=== PATIENT | female | born 1985 | race Caucasian/White ===

== ENCOUNTER 2020-05-16 07:03 | Outpatient (REF) | payer OTHER, SELFPAY | END 2020-05-16 07:04 | disposition home or self-care (01) | LOC: HO.WFDLDS 07:03 | PROVIDERS: PCP Pediatrics; Visit Provider Internal Medicine | DX: Z20.828 Contact with and (suspected) exposure to other viral communicable diseases (principal) | CPT/HCPCS: 87635 ==

== ENCOUNTER 2020-06-30 11:58 | Outpatient (REF) | payer OTHER, SELFPAY ==
[2020-06-30 12:54] LABS: COVID-19 Test Positive (Negative)
== END 2020-06-30 11:59 | disposition home or self-care (01) ==
LOC: HO.LAB 11:58
PROVIDERS: Visit Provider Internal Medicine
DX: Z20.828 Contact with and (suspected) exposure to other viral communicable diseases (principal)
CPT/HCPCS: 87635; C9803

== ENCOUNTER 2020-08-04 09:32 | Outpatient (REF) | payer OTHER, SELFPAY ==
[2020-08-04 10:35] LABS: MANUAL DIFF FLAG NO
[2020-08-04 10:55] LABS: Basophils Absolute Auto 0.1 X10*3/uL (0.0-0.2); Basophils Percent Auto 0.6 % (0-2); Eosinophils Absolute Auto 0.1 X10*3/uL (0.0-0.4); Eosinophils Percent Auto 0.8 % (0-4); Hemoglobin 13.8 g/dl (12.0-16.0); Imm Gran Abs Auto 0.06 X10*3/uL (0.00-0.03); Imm Gran Pct Auto 0.6 % (0.0-0.4); Lymphocytes Absolute Auto 2.5 X10*3/uL (1.2-4.9); Lymphocytes Percent Auto 26.1 % (20-40); Mean Corpuscular HGB Conc 32.1 g/dl (31.0-35.0); Mean Corpuscular Hemoglobin 29.9 pg (27.0-33.0); Mean Corpuscular Volume 93.3 fL (80-98); Mean Platelet Volume 10.6 fL (9.4-12.3); Monocytes Absolute Auto 0.6 X10*3/uL (0.1-1.2); Monocytes Percent Auto 6.2 % (2-11); Neutrophils Absolute Auto 6.3 X10*3/uL (2.0-8.3); Neutrophils Percent Auto 65.7 % (45-73); Platelet Count 294 X10*3/uL (160-400); Red Blood Count 4.61 X10*6/uL (4.20-5.50); Red Cell Distribution Width 13.7 % (11.0-16.0); White Blood Count 9.5 X10*3/uL (4.8-10.8)
[2020-08-04 11:19] LABS: Glucose Urine UA NEG (NEG); Leukocyte Esterase Urine NEG (NEG); Nitrite Urine NEG (NEG); Specific Gravity - Urine 1.015 (1.005-1.025); Urine Blood TRACE (NEG); Urine Ketones NEG (NEG); Urine Protein NEG (NEG-TRACE)
[2020-08-04 11:22] LABS: Alanine Aminotransferase 21 U/L (0-31); Albumin Level 4.5 g/dL (3.5-5.0); Alkaline Phosphatase 48 U/L (39-117); Anion Gap 14 (12-20); Aspartate Amino Transferase 19 U/L (5-31); Bilirubin Total 0.4 mg/dL (0.0-1.0); Blood Urea Nitrogen 10 mg/dL (9-16); Calcium 9.3 mg/dL (8.4-10.2); Carbon Dioxide 26 mmol/L (22-29); Chloride 104 mmol/L (96-108); Estimated Glomerular Filt Rate > 60; Glucose Random 84 mg/dL (60-115); Potassium 4.9 mmol/l (3.3-5.1); Sodium 139 mmol/L (135-145)
[2020-08-04 11:26] LABS: Appearance Urine CLEAR; Color Urine YELLOW
[2020-08-04 11:48] LABS: Bacteria Urine 1+ /LPF; Renal Epithelial Cells Urine TRACE /LPF; Squamous Epithelial Cell Urine 1+ /LPF
--- NOTE | 2020-08-04 14:03 | CT_ITS ---
EXAMINATION: CT ABDOMEN AND PELVIS WITH CONTRAST CLINICAL INFORMATION: Left lower abdominal pain COMPARISON: None TECHNIQUE: Multidetector volumetric images were obtained from the superior aspect of the liver through the pubic symphysis following administration 85 mL of Omnipaque 350 intravenous contrast. Sagittal and coronal reformatted images were obtained on the technologist's workstation. Oral contrast: Yes This CT examination was performed using dose optimization techniques as appropriate, variously including the following: *Automated exposure control *Adjustment of mA and/or kV according to patient size (this includes techniques or standardized protocols for targeted exams where dose is matched to indication/reason for exam; i.e. extremities or head) *Use of iterative reconstruction technique DLP: 528 mGy-cm FINDINGS: LUNG BASES: There is dependent atelectasis seen at the lung bases. The lung bases are otherwise clear. LIVER, GALLBLADDER, AND BILIARY TREE: The liver is normal in size, shape, and attenuation. No focal hepatic lesion or biliary ductal dilatation is present. The gallbladder is unremarkable with no evidence of radiopaque gallstones, gallbladder wall thickening, or obvious pericholecystic inflammatory changes. PANCREAS: Unremarkable. SPLEEN: Unremarkable. ADRENAL GLANDS: Unremarkable. KIDNEYS AND URETERS: The kidneys are normal in size, shape, and attenuation. No hydronephrosis, hydroureter, or calculi seen. No perinephric stranding. BLADDER: Unremarkable. GASTROINTESTINAL TRACT: There is stool throughout the colon questionable for constipation. The small and large bowel are otherwise unremarkable. The appendix is unremarkable. ABDOMINAL WALL: No significant hernia is appreciated. LYMPH NODES: Normal. VASCULAR: Unremarkable. PELVIC VISCERA: There is an IUD in the uterus in satisfactory position. The uterus and adnexa are otherwise unremarkable. OSSEOUS STRUCTURES: There is degenerative disc disease at L5-S1. CT/CT abdomen pelvis w con IMPRESSION: Stool throughout the colon questionable for constipation. IUD in the uterus in satisfactory position. Degenerative disc disease at L5-S1.
[2020-08-04] MEDS: iohexoL 350 MG/ML 100 ML INFUS..BTL IV (16:13)
== END 2020-08-04 09:33 | disposition home or self-care (01) ==
LOC: HO.WFDLDS 09:32
PROVIDERS: Visit Provider Family Medicine
DX: R10.32 Left lower quadrant pain (principal)
CPT/HCPCS: 36415; 74177; 80053; 81001; 81003; 85025; Q9967

== ENCOUNTER 2020-09-15 08:19 | Outpatient (REF) | payer OTHER, SELFPAY ==
[2020-09-15 08:37] LABS: COVID-19 Test Negative (Negative)
== END 2020-09-15 08:20 | disposition home or self-care (01) ==
LOC: HO.EMPCOV 08:19
PROVIDERS: Visit Provider Internal Medicine
DX: Z20.822 Contact with and (suspected) exposure to COVID-19 (principal)
CPT/HCPCS: 36415; 87635; C9803

== ENCOUNTER 2020-12-08 08:35 | Outpatient (REF) | payer OTHER, SELFPAY | END 2020-12-08 08:36 | disposition home or self-care (01) | LOC: HO.WFDLNP 08:35 | PROVIDERS: Visit Provider Family Medicine | DX: N39.0 Urinary tract infection, site not specified (principal) | CPT/HCPCS: 87086; 87088; 87186 ==

== ENCOUNTER 2021-07-23 09:31 | Outpatient (REF) | payer OTHER, SELFPAY | END 2021-07-23 09:32 | disposition home or self-care (01) | LOC: HO.WFDLDS 09:31 | PROVIDERS: PCP Pediatrics; Visit Provider Internal Medicine | DX: Z20.822 Contact with and (suspected) exposure to COVID-19 (principal) | CPT/HCPCS: C9803; U0003; U0005 ==

== ENCOUNTER → 2021-08-07 15:53 | Outpatient (BNVA) | payer OTHER, SELFPAY | PROVIDERS: PCP Pediatrics; Visit Provider Psychiatry & Neurology Neurology | DX: G47.411 Narcolepsy with cataplexy (principal); G47.33 Obstructive sleep apnea (adult) (pediatric) | CPT/HCPCS: 99212 ==

== ENCOUNTER → 2021-09-09 15:29 | Outpatient (BNVA) | payer OTHER, SELFPAY | PROVIDERS: PCP Pediatrics; Visit Provider Psychiatry & Neurology Neurology ==

== ENCOUNTER → 2021-09-28 13:30 | Outpatient (BNVA) | payer OTHER, SELFPAY | PROVIDERS: PCP Pediatrics; Visit Provider Psychiatry & Neurology Neurology ==

== ENCOUNTER 2022-03-10 07:16 | Outpatient (REF) | payer OTHER, SELFPAY ==
[2022-03-10 11:33] LABS: MANUAL DIFF FLAG NO
[2022-03-10 11:43] LABS: Basophils Absolute Auto 0.1 X10*3/uL (0.0-0.2); Basophils Percent Auto 0.7 % (0-2); Eosinophils Absolute Auto 0.1 X10*3/uL (0.0-0.4); Eosinophils Percent Auto 1.3 % (0-4); Hematocrit 41.9 % (37.0-47.0); Hemoglobin 13.7 g/dl (12.0-16.0); Imm Gran Abs Auto 0.08 X10*3/uL (0.00-0.03); Imm Gran Pct Auto 0.9 % (0.0-0.4); Lymphocytes Absolute Auto 2.1 X10*3/uL (1.2-4.9); Lymphocytes Percent Auto 23.1 % (20-40); Mean Corpuscular HGB Conc 32.7 g/dl (31.0-35.0); Mean Corpuscular Hemoglobin 31.1 pg (27.0-33.0); Mean Platelet Volume 10.9 fL (9.4-12.3); Monocytes Absolute Auto 0.7 X10*3/uL (0.1-1.2); Monocytes Percent Auto 7.9 % (2-11); Neutrophils Absolute Auto 5.9 x10*3/uL (2.0-8.3); Neutrophils Percent Auto 66.1 % (45-73); Platelet Count 280 X10*3/uL (160-400); Red Blood Count 4.41 X10*6/uL (4.20-5.50); Red Cell Distribution Width 13.6 % (11.0-16.0)
[2022-03-10 11:59] LABS: Estimated Average Glucose 97 mg/dL
[2022-03-10 12:08] LABS: ~HepC Num1 0.18 S/CO (0.00-0.79); ~Hepatitis C Antibody Nonreactive (Nonreactive)
[2022-03-10 12:13] LABS: Free T4 (Free Thyroxine) 0.92 ng/dL (0.71-1.85); Thyroid Stimulating Hormone 2.35 uIU/mL (0.32-4.0); Vitamin D 25-OH Total 23.5 ng/mL (>30)
[2022-03-10 12:18] LABS: Alanine Aminotransferase 25 U/L (0-31); Albumin Level 4.2 g/dL (3.5-5.0); Alkaline Phosphatase 45 U/L (39-117); Anion Gap 15 (12-20); Aspartate Amino Transferase 21 U/L (5-31); Bilirubin Total 0.3 mg/dL (0.0-1.0); Blood Urea Nitrogen 9 mg/dL (9-16); Calcium 8.8 mg/dL (8.4-10.2); Carbon Dioxide 24 mmol/L (22-29); Chloride 107 mmol/L (96-108); Cholesterol 234 mg/dL; Estimated Glomerular Filt Rate > 60; Glucose Fasting 84 mg/dL (60-99); HDL Cholesterol 32 mg/dL; LDL Cholesterol Calculated 173 mg/dl; Potassium 4.5 mmol/L (3.3-5.1); Sodium 141 mmol/L (135-145); Total Protein 6.7 g/dL (6.5-8.0); Triglycerides 146 mg/dL
[2022-03-10 13:05] LABS: Vitamin B12 212 pg/mL (200-900)
== END 2022-03-10 07:17 | disposition home or self-care (01) ==
LOC: HO.WFDLDS 07:16
PROVIDERS: PCP Internal Medicine; Visit Provider Internal Medicine
DX: Z00.00 Encounter for general adult medical examination without abnormal findings (principal); G47.411 Narcolepsy with cataplexy; G47.33 Obstructive sleep apnea (adult) (pediatric); Z13.31 Encounter for screening for depression; Z99.89 Dependence on other enabling machines and devices
CPT/HCPCS: 36415; 80053; 80061; 82306; 82607; 83036; 84439; 84443; 85025; 86803

== ENCOUNTER → 2022-05-31 15:39 | Outpatient (BNVA) | payer OTHER, SELFPAY | PROVIDERS: PCP Internal Medicine; Visit Provider Psychiatry & Neurology Neurology | DX: G47.411 Narcolepsy with cataplexy (principal); G47.33 Obstructive sleep apnea (adult) (pediatric) | CPT/HCPCS: 99212 ==

== ENCOUNTER 2022-07-28 11:04 | Outpatient (REF) | payer OTHER, SELFPAY | END 2022-07-28 11:05 | disposition home or self-care (01) | LOC: HO.LAB 11:04 | PROVIDERS: Visit Provider Family Medicine | DX: N39.0 Urinary tract infection, site not specified (principal) | CPT/HCPCS: 87086; 87088; 87186 ==

== ENCOUNTER → 2022-09-02 16:00 | Outpatient (BNVA) | payer OTHER, SELFPAY | PROVIDERS: PCP Internal Medicine; Visit Provider Psychiatry & Neurology Neurology | DX: Z13.89 Encounter for screening for other disorder (principal) ==

== ENCOUNTER 2022-09-16 12:30 | Outpatient (REF) | payer OTHER, SELFPAY ==
[2022-09-16 13:12] LABS: Influenza A PCR NEGATIVE (Negative); Influenza B PCR NEGATIVE (Negative); Resp Syncy Virus RNA Qual PCR NEGATIVE (Negative); SARS COV2 PCR INHOUSE NEGATIVE (Negative)
== END 2022-09-16 12:31 | disposition home or self-care (01) ==
LOC: HO.LNP 12:30
PROVIDERS: Visit Provider Hospitalist
DX: Z20.822 Contact with and (suspected) exposure to COVID-19 (principal); B34.9 Viral infection, unspecified
CPT/HCPCS: 0241U

== ENCOUNTER 2023-01-11 17:12 | Outpatient (REF) | payer OTHER, SELFPAY ==
[2023-01-12 12:00] LABS: Appearance Urine Cloudy; Color Urine Yellow; Glucose Urine UA Negative (Negative); Leukocyte Esterase Urine Large (3+) (Negative); Nitrite Urine Negative (Negative); PH 6.5 (5.0-9.0); UMIC TRIGGER UACC YES; Urine Blood Small (1+) (Negative); Urine Ketones Negative (Negative); Urine Protein Negative (Neg-Trace)
[2023-01-12 12:06] LABS: Bacteria Urine 4+ (None Seen); Hyaline Casts Urine 0-2 /LPF (0-2); UACC Culture Trigger YES; WBC Urine >50 /HPF (0-5)
== END 2023-01-11 17:13 | disposition home or self-care (01) ==
LOC: HO.LAB 17:12
PROVIDERS: Visit Provider Family Medicine
DX: R82.90 Unspecified abnormal findings in urine (principal)
CPT/HCPCS: 81001; 81003; 87088; 87186

== ENCOUNTER 2023-05-09 08:47 | Outpatient (AMB) | payer OTHER, SELFPAY ==
--- NOTE | 2023-05-09 08:50 | AM.OFFWIN_ITS ---
Intake Vital Signs 05/09/23 08:57 Height 5 ft 4 in BP 108/58 L Blood Pressure Location Lt brachial Position Sitting Respiration 13 Pulse 89 Pulse Source Pulse Oximeter Pulse Oximetry (%) 98 Oxygen Delivery Method Room Air Intake Visit Reasons: abscess Intake Note: Patient has had an abscess like area on the inside of the upper right side of the mouth x7 days. Patient reports she noticed a bubble forming x1 day. Patient reports she is trying to set up an appointment with her dentist and would like an antibiotic in the meantime. 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 Patient has had an abscess like area on the inside of the upper right side of the mouth x7 days. Patient reports she noticed a bubble forming x1 day. Patient reports she is trying to set up an appointment with her dentist and would like an antibiotic in the meantime. [facility] Medical History Depression Narcolepsy and cataplexy Obstructive sleep apnea Recurrent otitis media Surgical History H/O section H/O foot surgery History of back surgery History of salpingectomy Family History Mother Cancer Father No problems noted. Social History Household Members: Other Alcohol intake: never Patient Tobacco Use Status: Current everyday Tobacco user Tobacco use type: Cigarette Cigarette Packs Per Day: 0.5 Cigarettes Per Day: 10 Years Smoked: 15 Review of Systems Const Denies chills, Denies fatigue, Denies fever(s), Denies headache(s) and Denies weakness ENT Denies dizziness and Denies headache(s) Card Denies dyspnea Resp Denies cough, Denies dyspnea, Denies wheezing and Denies other (shortness of breath) Musc Denies numbness and Denies tingling Neuro Denies dizziness, Denies headache(s), Denies numbness, Denies tingling and Denies weakness Psych Denies anxiety and Denies depression Endo Denies fatigue Aller/Immun Denies wheezing Physical Exam Vital Signs: Last Vital Signs Pulse 89 05/09/23 08:57 Resp 13 05/09/23 08:57 BP 108/58 L 05/09/23 08:57 Pulse Ox 98 05/09/23 08:57 Oxygen Delivery Method Room Air 05/09/23 08:57 Const General: well developed; No acute distress Nutritional Appearance: well nourished Orientation/consciousness: patient oriented x3 HEENT Other: R upper inscicor and canine abscess Head: Yes normocephalic and Yes atraumatic Eyes General: appearance normal, both eyes and all related structures Pupils: Equal, round and reactive pupils present EOM: EOMs intact bilaterally Resp Effort & Inspection: normal respiratory effort Neuro General: patient oriented x3 and gait normal Cranial nerves: Yes Equal, round and reactive pupils present Psych Affect: normal affect Assessment & Plan Assessment & Plan (1) Dental abscess: Code(s): K04.7 - Periapical abscess without sinus Plan: Abscess?at?right?upper?canine?gums Also?some?tiny?vesicles?on?inside?of?lip?and?on?gums Possible?abscess?with?a?reactive?outbreak?of?HSV?1?as?patient?notes?she?has?had? cold?sores?in?the?past. Possibly?the?other?way?around Start?cephalexin?for?abscess Start?valacyclovir Medications: New valacyclovir 500 mg PO Q12H 20 tabs 0RF 10 days cephalexin 500 mg PO Q12H 20 caps 0RF 10 days fluconazole 150 mg PO Q3D 2 tabs 0RF 2 doses Coding Level of Care Code Est Pt Level 3 (83536) Diagnoses Dental abscess K04.7
[2023-05-09 08:57] VITALS: BP 108/58; PULSE 89; RESP 13; O2SAT 98
== END 2023-05-09 10:00 | disposition home or self-care (01) ==
PROVIDERS: PCP Internal Medicine; Visit Provider Family Medicine
DX: K04.7 Periapical abscess without sinus (principal)
CPT/HCPCS: 99213

== ENCOUNTER 2023-05-27 13:26 | Outpatient (AMB) | payer OTHER, SELFPAY ==
--- NOTE | 2023-05-27 13:28 | A.OFFVIS_ITS ---
Intake Vital Signs 05/27/23 13:29 Height 5 ft 4 in Weight 215 lb 6 oz BMI 37.0 BP 128/62 Blood Pressure Location Lt brachial Position Sitting Pulse Oximetry (%) 96 Oxygen Delivery Method Room Air Intake Visit Reasons: FMLA paperwork Intake Note: Pt presents today to have FMLA Allergies Sulfa (Sulfonamide Antibiotics) Allergy (Unknown, Verified 05/27/23 13:32) HIVES HPI HPI Comments History of Present Illness Details 37 y/o female patient with narcolepsy an d RADHA presents for FMLA paperwork. Pt has narcolepsy with cataplexy and RADHA. She takes Xyrem 4.5 mg at 9 pm once nightly but having difficulty wake up in the morning. She is still groggy in the morning and having problem driving to work. Pt wakes up 5 am, and takes modafinil 200 mg when she wakes up, It takes an hour to modafinil effects. She can't get out of bed until modafinil kicks in. She is consistently being late for work 7-10 min, and need FMLA paperwork for excuse. She is compliant with CPAP. The CPAP compliance and therapy response (04/27/23-) reviewed. She is on APAP [id number]. The usage days 83% and the average usage hours 6 hrs 50 min. The max pressure was 8.5 and the AHI was 0.1/hr. [facility] Medical History Recurrent otitis media Narcolepsy and cataplexy Obstructive sleep apnea Depression Surgical History History of salpingectomy H/O section H/O foot surgery History of back surgery Family History Mother Cancer Father No problems noted. Social History Household Members: Other Alcohol intake: never Patient Tobacco Use Status: Current everyday Tobacco user Tobacco use type: Cigarette Cigarette Packs Per Day: 0.5 Cigarettes Per Day: 10 Years Smoked: 15 Review of Systems Const All systems reviewed & are unremarkable except as noted in HPI and below Physical Exam Vital Signs: Last Vital Signs BP 128/62 05/27/23 13:29 Pulse Ox 96 05/27/23 13:29 Oxygen Delivery Method Room Air 05/27/23 13:29 BMI result Body Mass Index 37.0 Const General: cooperative Orientation/consciousness: patient oriented x3 Resp Effort & Inspection: normal respiratory effort and able to speak in complete sentences Neuro General: patient oriented x3 Psych Appearance: grossly normal Mental Status: mental status grossly normal Attitude: cooperative Assessment & Plan Assessment & Plan (1) Narcolepsy and cataplexy: Code(s): G47.411 - Narcolepsy with cataplexy (2) Obstructive sleep apnea: Code(s): G47.33 - Obstructive sleep apnea (adult) (pediatric) Plan: Continue CPAP 5-20 and compliance stressed Continue wakix 17.8mg qam, modafanil 200mg qam and qnoon Continue xyrem 4.5g at bed time and 2 nd dose 2.5-4hrs later. FMLA paperwork filled. Coding Level of Care Code Est Pt Level 3 (00643) Diagnoses Narcolepsy and cataplexy G47.411 Obstructive sleep apnea G47.33
[2023-05-27 13:29] VITALS: BP 128/62; O2SAT 96; BMI 37.0
== END 2023-05-27 14:17 | disposition home or self-care (01) ==
PROVIDERS: PCP Internal Medicine; Visit Provider Nurse Practitioner Family
DX: G47.411 Narcolepsy with cataplexy (principal); G47.33 Obstructive sleep apnea (adult) (pediatric)
CPT/HCPCS: 99213

== ENCOUNTER → 2023-05-27 13:26 | Outpatient (BNVA) | payer OTHER, SELFPAY | PROVIDERS: PCP Internal Medicine; Visit Provider Nurse Practitioner Family | DX: G47.411 Narcolepsy with cataplexy (principal); G47.33 Obstructive sleep apnea (adult) (pediatric) | CPT/HCPCS: 99212 ==

== ENCOUNTER 2023-08-08 08:50 | Outpatient (AMB) | payer OTHER, SELFPAY ==
--- NOTE | 2023-08-08 08:56 | MHC.OFFWIV ---
Intake Vital Signs 08/08/23 08:58 Height 5 ft 4 in Weight 218 lb 8 oz BMI 37.5 BP 100/54 L Blood Pressure Location Lt brachial Position Sitting Pulse 99 Pulse Source Pulse Oximeter Temp 98.9 F Temp Source Oral Pulse Oximetry (%) 97 Oxygen Delivery Method Room Air Intake Visit Reasons: sore throat Intake Note: Pt woke up in the middle night with a sore throat and pt is day 10 after having covid Patient Tobacco Use Status: Current everyday Tobacco user Allergies Sulfa (Sulfonamide Antibiotics) Allergy (Unknown, Verified 08/08/23 09:12) HIVES Medication List - Last Reconciled 08/08/23 by Kaila Rendon CNP atorvastatin 20 mg PO DAILY cholecalciferol (vitamin D3) 125 mcg PO DAILY cyanocobalamin (vitamin B-12) 1,000 mcg PO DAILY fluticasone propionate 50 mcg/actuation (Flonase Allergy Relief) 1 spray intranasal Q12H 30 days ibuprofen 800 mg PO Q8H PRN levonorgestrel (Mirena) intrauterine modafinil 1 tabs qam and 1 tab at noon PO 2 times a day; pitolisant (Wakix) 17.8 mg PO DAILY sodium,calcium,mag,pot oxybate 0.5 gram/mL (Xywav) 4.5 grams PO BID Do you need a note to return to daycare/school/sports/work: Yes HPI HPI Comments History of Present Illness Details 37-year-old female presents with complaints of sore throat which started last night. She reports associated intermittent dry cough. No sick contact. She had COVID 10 days ago. [facility] Medical History Recurrent otitis media Narcolepsy and cataplexy Obstructive sleep apnea Depression Surgical History History of salpingectomy H/O section H/O foot surgery History of back surgery Family History Mother Cancer Father No problems noted. Social History Household Members: Other Alcohol intake: never Patient Tobacco Use Status: Current everyday Tobacco user Tobacco use type: Cigarette Cigarette Packs Per Day: 0.5 Cigarettes Per Day: 10 Years Smoked: 15 Review of Systems Const Details: Const Denies chills, Denies fatigue, Denies fever(s), Denies headache(s) and Denies weakness ENT Reports as per HPI Resp Reports cough, Denies dyspnea, Denies wheezing and Denies other (shortness of breath) Cardio Denies chest pain, Denies lightheadedness, Denies dyspnea and Denies other (palpitations) Neuro Denies dizziness, Denies headache(s), Denies numbness, Denies tingling and Denies weakness Psych Denies anxiety, Denies depression, Denies memory?loss Endo Denies fatigue Aller/Immun Denies wheezing Physical Exam Vital Signs: Last Vital Signs Temp 98.9 F 08/08/23 08:58 Pulse 99 08/08/23 08:58 BP 100/54 L 08/08/23 08:58 Pulse Ox 97 08/08/23 08:58 Oxygen Delivery Method Room Air 08/08/23 08:58 BMI result Body Mass Index 37.5 Const Other: Const General: well developed; No acute distress Nutritional Appearance: well nourished Orientation/consciousness: patient oriented x3 HEENT Head is normocephalic Bilateral ear canal and TM are normal Nasal turbinates are pink and moist Oropharynx with mild erythema. Tonsils with no swelling, patches, exudates Sinuses are nontender with palpation No auricular or cervical lymphadenopathy Eyes General: appearance normal, both eyes and all related structures Pupils: Equal, round and reactive pupils present EOM: EOMs intact bilaterally Resp Effort & Inspection: normal respiratory effort Auscultation: clear to auscultation bilaterally Cardio Rate: regular rate Rhythm: regular rhythm Heart sounds: S1 normal heart sound present, S2 normal heart sound present, no gallops, no murmurs and no rubs Bruits: no abdominal aortic bruits and no carotid bruits Neuro General: patient oriented x3 and gait normal, no focal neuro deficit Cranial nerves: Yes Equal, round and reactive pupils present Psych Affect: normal affect Results AMB Rapid Strep AMB Rapid Strep Negative Last Edit by Elsa Higgins CMA on 08/08/23 09:08 Results Reviewed Results Reviewed: Laboratory Last Values Strep Scn Rapid Clinic Negative 08/08/23 09:08 Assessment & Plan Assessment & Plan (1) Pharyngitis: Code(s): J02.9 - Acute pharyngitis, unspecified Plan: Likely viral illness though possibly allergies. No exam evidence of bacterial infection Rapid strep test is negative Viral illness There is no antibiotic medication for viruses.? They must run their course.? Most average 5-7 days but 7-10 days is not uncommon and up to 14 days is still possible.? A cough is often the last symptom to resolve and this can last for weeks in some cases. Rest Hydrate well -? Drink plenty of fluids.? Especially water. Tylenol or ibuprofen for muscle aches, headache, fever/discomfort Cannot rule out COVID-19/RSV/Flu infection Nasal swab acquired and will be sent to the lab Return for new or worsening symptoms Verbalized understanding and agreed with treatment plan. Orders: Orders AMB Rapid Strep Screen Today Z13.9 - Encounter for screening, unspecified SARS-CoV2/FLU/RSV Today J02.9 - Acute pharyngitis, unspecified Coding Level of Care Code Est Pt Level 3 (55934) Diagnoses Pharyngitis J02.9
[2023-08-08 08:58] VITALS: BP 100/54; PULSE 99; TEMP 37.2; O2SAT 97; BMI 37.5
== END 2023-08-08 12:33 | disposition home or self-care (01) ==
LOC: HO.HMGWIW 08:50
PROVIDERS: PCP Internal Medicine
DX: J02.9 Acute pharyngitis, unspecified (principal); Z13.9 Encounter for screening, unspecified
CPT/HCPCS: 87880; 99213

== ENCOUNTER 2023-08-08 10:59 | Outpatient (REF) | payer OTHER, SELFPAY ==
[2023-08-08 11:42] LABS: Influenza A PCR NEGATIVE (Negative); Influenza B PCR NEGATIVE (Negative); Resp Syncy Virus RNA Qual PCR NEGATIVE (Negative); SARS COV2 PCR INHOUSE NEGATIVE (Negative)
== END 2023-08-08 11:00 | disposition home or self-care (01) ==
LOC: HO.LNP 10:59
PROVIDERS: Visit Provider Nurse Practitioner Family
DX: Z11.52 Encounter for screening for COVID-19 (principal); J02.9 Acute pharyngitis, unspecified
CPT/HCPCS: 0241U

== ENCOUNTER 2023-08-24 15:11 | Outpatient (AMB) | payer OTHER, SELFPAY ==
--- NOTE | 2023-08-24 15:14 | A.OFFVIS_ITS ---
Intake Vital Signs 08/24/23 15:16 Height 5 ft 4 in BP 102/50 L Blood Pressure Location Rt brachial Position Sitting Respiration 16 Pulse 71 Pulse Source Pulse Oximeter Pulse Oximetry (%) 97 Oxygen Delivery Method Room Air Intake Visit Reasons: f/u meds reconciliation-CONFIRMED Intake Note: Pt presents for 2 month follow up for narcolepsy /cataplexy/ med check. 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 Required: No Allergies Sulfa (Sulfonamide Antibiotics) Allergy (Unknown, Verified 08/24/23 15:15) HIVES Medication List - Last Reconciled 08/24/23 by Denise Mims MD atorvastatin 20 mg PO DAILY cholecalciferol (vitamin D3) 125 mcg PO DAILY cyanocobalamin (vitamin B-12) 1,000 mcg PO DAILY fluticasone propionate 50 mcg/actuation (Flonase Allergy Relief) 1 spray intranasal Q12H 30 days ibuprofen 800 mg PO Q8H PRN levonorgestrel (Mirena) intrauterine modafinil 1 tabs qam and 1 tab at noon PO 2 times a day; pitolisant (Wakix) 17.8 mg PO DAILY sodium,calcium,mag,pot oxybate 0.5 gram/mL (Xywav) 4.5 grams PO BID HPI HPI Comments History of Present Illness Details 37 y/o female patient with narcolepsy an d RADHA comes for follow up. Pt has narcolepsy with cataplexy and RADHA. She takes Xyrem 4.5 gm at 8pm . she is not taking the second dose as she had trouble waking up when she was taking the second dose at 12.30 am - causes nausea Now she takes 1 dose at 8pm and wants to try to take the second dose earlier Pt wakes up 5 am, and takes modafinil 200 mg when she wakes up and take ssecodn dose at 12noon She can't get out of bed until modafinil kicks in. . She is compliant with CPAP. The CPAP compliance and therapy response reviewed. She is on APAP [id number]. The usage days 83% and the average usage hours 6 hrs 50 min. The max pressure was 8.5 and the AHI was 0.1/hr. she si not sure why wakix was stopped she takes 1-2 naps on weekends and 1 nap on weekday [facility] Medical History Recurrent otitis media Narcolepsy and cataplexy Obstructive sleep apnea Depression Surgical History History of salpingectomy H/O section H/O foot surgery History of back surgery Family History Mother Cancer Father No problems noted. Social History Household Members: Other Alcohol intake: never Patient Tobacco Use Status: Current everyday Tobacco user Tobacco use type: Cigarette Cigarette Packs Per Day: 0.5 Cigarettes Per Day: 10 Years Smoked: 15 Physical Exam Vital Signs: Last Vital Signs Pulse 71 08/24/23 15:16 Resp 16 08/24/23 15:16 BP 102/50 L 08/24/23 15:16 Pulse Ox 97 08/24/23 15:16 Oxygen Delivery Method Room Air 08/24/23 15:16 Const General: cooperative Nutritional Appearance: overweight Orientation/consciousness: patient oriented x3 Resp Effort & Inspection: normal respiratory effort and able to speak in complete sentences Neuro General: patient oriented x3, gait normal, tone normal, moves all extremities and no focal motor deficits Psych Appearance: grossly normal Mental Status: mental status grossly normal Attitude: cooperative Assessment & Plan Assessment & Plan (1) Narcolepsy and cataplexy: Code(s): G47.411 - Narcolepsy with cataplexy (2) Obstructive sleep apnea: Code(s): G47.33 - Obstructive sleep apnea (adult) (pediatric) Plan: Plan Continue CPAP 5-20 and compliance stressed Restart wakix 17.8mg qam, modafanil 200mg qam and qnoon Continue xyrem 4.5g at bed time and 2 nd dose 2.5-4hrs later. - f/u tele in 1 month with Anil Kelley and will switch to Xywave if she still has severe nausea. Medications: Refilled pitolisant (Wakix) 17.8 mg PO DAILY 30 tabs 6RF Coding Level of Care Code Est Pt Level 4 (86927) Diagnoses Narcolepsy and cataplexy G47.411 Obstructive sleep apnea G47.33
[2023-08-24 15:16] VITALS: BP 102/50; PULSE 71; RESP 16; O2SAT 97
== END 2023-08-24 15:39 | disposition home or self-care (01) ==
PROVIDERS: PCP Internal Medicine; Visit Provider Psychiatry & Neurology Neurology
DX: G47.411 Narcolepsy with cataplexy (principal); G47.33 Obstructive sleep apnea (adult) (pediatric)
CPT/HCPCS: 99214

== ENCOUNTER → 2023-08-24 15:11 | Outpatient (BNVA) | payer OTHER, SELFPAY | PROVIDERS: PCP Internal Medicine; Visit Provider Psychiatry & Neurology Neurology | DX: G47.411 Narcolepsy with cataplexy (principal); G47.33 Obstructive sleep apnea (adult) (pediatric); Z99.89 Dependence on other enabling machines and devices | CPT/HCPCS: 99212 ==

== ENCOUNTER 2023-10-12 11:24 | Outpatient (AMB) | payer OTHER, SELFPAY ==
--- NOTE | 2023-10-12 11:31 | AM.OFFWIN_ITS ---
Intake Intake Visit Reasons: not feeling well Patient Tobacco Use Status: Current everyday Tobacco user Allergies Sulfa (Sulfonamide Antibiotics) Allergy (Unknown, Verified 10/12/23 11:31) HIVES Medication List - Last Reconciled 10/12/23 by Shana Hightower, [facility]- atorvastatin 20 mg PO DAILY cholecalciferol (vitamin D3) 125 mcg PO DAILY cyanocobalamin (vitamin B-12) 1,000 mcg PO DAILY fluticasone propionate 50 mcg/actuation (Flonase Allergy Relief) 1 spray intranasal Q12H 30 days ibuprofen 800 mg PO Q8H PRN levonorgestrel (Mirena) intrauterine modafinil 1 tabs qam and 1 tab at noon PO 2 times a day; pitolisant (Wakix) 17.8 mg PO DAILY sodium,calcium,mag,pot oxybate 0.5 gram/mL (Xywav) 4.5 grams PO BID HPI HPI Comments History of Present Illness Details Here today with complaints of a sore throat that started yesterday. Throat feels scratchy. Has a mild cough. Exposed to children with strep. Rapid strep done today and negative. Eyes feel gritty and like she has pink eye bilat. This started 2 days ago. No drainage. Using antibiotic eye treatment from home, thinks its . [facility] Medical History Recurrent otitis media Narcolepsy and cataplexy Obstructive sleep apnea Depression Surgical History History of salpingectomy H/O section H/O foot surgery History of back surgery Family History Mother Cancer Father No problems noted. Social History Household Members: Other Alcohol intake: never Patient Tobacco Use Status: Current everyday Tobacco user Tobacco use type: Cigarette Cigarette Packs Per Day: 0.5 Cigarettes Per Day: 10 Years Smoked: 15 Review of Systems Const All systems reviewed & are unremarkable except as noted in HPI and below Physical Exam Const Other: Awake alert NAD Sclera clear bilat,conjunctiva mildly injected left worse than right no drainage or edema MMM, pharynx mild erythema, uvula deviation to the left RRR LS CTAB dim throughout Results AMB Rapid Strep AMB Rapid Strep Negative Last Edit by BLAIR VillafuerteP- on 4 11:35 Results Reviewed Results Reviewed: Laboratory Last Values Strep Scn Rapid Clinic Negative 10/12/23 11:35 Assessment & Plan Assessment & Plan (1) Pharyngitis: Comment: rapid negative throat culture obtained and negative along w/ viral culture plan will be to tx eyes w/ Azithro drops otherwise supportive care Code(s): J02.9 - Acute pharyngitis, unspecified Qualifiers: Pharyngitis/tonsillitis etiology: unspecified etiology Qualified Code(s): J02.9 - Acute pharyngitis, unspecified (2) Flu-like symptoms: Code(s): R68.89 - Other general symptoms and signs Plan This note is constructed using voice recognition software. While every effort has been made to ensure accuracy in social insurance analyst, still errors may have been included Sometimes, these errors may affect the content or meaning of the given sentence . Total time spent caring for the patient today was 40 minutes. This includes time spent before the visit reviewing the chart, time spent during the visit, and time spent after the visit on documentation Orders: Orders SARS-CoV2/FLU/RSV 10/12/23 J02.9 - Acute pharyngitis, unspecified, R68.89 - Other general symptoms and signs AMB Rapid Strep Screen 10/12/23 J02.9 - Acute pharyngitis, unspecified Throat Culture 10/12/23 J02.9 - Acute pharyngitis, unspecified, R68.89 - Other general symptoms and signs Medications: New azithromycin 1% one drop into effected eye(s) twice per day x 2 days then once daily for 5 days 1 drp ophthalmic (eye) DAILY 7 days 2.5 mL 0RF Coding Level of Care Code Est Pt Level 5 (20654) Diagnoses Pharyngitis, unspecified etiology J02.9 Pharyngitis/tonsillitis etiology: unspecified etiology Flu-like symptoms R68.89
== END 2023-10-12 11:59 | disposition home or self-care (01) ==
PROVIDERS: PCP Internal Medicine; Visit Provider Nurse Practitioner Family
DX: J02.9 Acute pharyngitis, unspecified (principal); R68.89 Other general symptoms and signs
CPT/HCPCS: 87880; 99215

== ENCOUNTER 2023-10-12 11:36 | Outpatient (REF) | payer OTHER, SELFPAY ==
[2023-10-12 15:51] LABS: Influenza A PCR NEGATIVE (Negative); Influenza B PCR NEGATIVE (Negative); Resp Syncy Virus RNA Qual PCR NEGATIVE (Negative); SARS COV2 PCR INHOUSE NEGATIVE (Negative)
== END 2023-10-12 11:37 | disposition home or self-care (01) ==
LOC: HO.LAB 11:36
PROVIDERS: Visit Provider Nurse Practitioner Family
DX: Z11.52 Encounter for screening for COVID-19 (principal); J02.9 Acute pharyngitis, unspecified; R68.89 Other general symptoms and signs
CPT/HCPCS: 0241U; 87070

== ENCOUNTER 2023-11-18 08:56 | Outpatient (AMB) | payer OTHER, SELFPAY ==
--- NOTE | 2023-11-18 07:53 | MHC.PC.OV ---
Vital Signs 11/18/23 08:13 11/18/23 09:59 Height 5 ft 4 in BP 140/80 H 108/56 L Blood Pressure Location Lt brachial Lt brachial Position Sitting Sitting Respiration 12 Pulse 88 Pulse Source Pulse Oximeter Pulse Oximetry (%) 98 Oxygen Delivery Method Room Air Intake Visit Reasons: est care Intake Note: Patient is here to establish care. Patient reports she has no concerns at this time. Stage Settings Painter Required: No Accompanied by: Self / Same As Patient Allergies Sulfa (Sulfonamide Antibiotics) Allergy (Unknown, Verified 11/18/23 09:40) HIVES Medication List - Last Reconciled 11/18/23 by Shana Hightower, WAREHOUSE RECORD CLERK- cholecalciferol (vitamin D3) 125 mcg PO DAILY cyanocobalamin (vitamin B-12) 1,000 mcg PO DAILY fluticasone propionate 50 mcg/actuation (Flonase Allergy Relief) 1 spray intranasal Q12H 30 days ibuprofen 800 mg PO Q8H PRN levonorgestrel (Mirena) intrauterine modafinil 1 tabs qam and 1 tab at noon PO 2 times a day; pitolisant (Wakix) 17.8 mg PO DAILY sodium,calcium,mag,pot oxybate 0.5 gram/mL (Xywav) 4.5 grams PO BID Tobacco use date assessed: 11/18/23 Dental Screening Dental Screen Date: 11/18/23 Did you have a dental visit in the last 12 months?: Yes Did you have a dental problem in the last 6 months where you did not have access to dental care?: No Was dental information given to patient?: Patient has dentist HPI HPI Comments History of Present Illness Details 37 y/o F with obstructive sleep apnea, narcolepsy and cataplexy, major depressive disorder, vitamin-D deficiency, current tobacco user, allergic conjunctivitis, obesity Status post salpingectomy, , foot surgery, lumbar laminectomy with microdiscectomy 08/10/2018 Dr Esposito Family history: Mother from lung cancer, paternal grandfather with lung cancer and Crohn's, maternal grandmother with lung cancer, maternal uncle with lung cancer, maternal grandfather with renal cancer Health maintenance High-grade squamous antra epithelial lesion 2016; Pap 08/09/2019 negative cotest, Tdap 11/08/2014 Specialists Sleep medicine Neurology Dermatology* Has not followed in some time. Here today as a new patient, to [facility] & for CPE Derm - had benign skin lesion removed a few years ago of Left upper arm. It is coming back. 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 Radiates into forearm. ROM causes pain. Has used OT in the past along w/ splinting with + effect. Would like order renewal. Eyes - reports its been a while; supposed to wear glasses. Referral placed today for appt. [facility] Medical History (Updated 11/18/23 @ 10:46 by Shana Hightower, [facility]) Degenerative disc disease, lumbar Recurrent otitis media Narcolepsy and cataplexy Obstructive sleep apnea Depression Surgical History (Updated 11/18/23 @ 08:23 by Ivana Martinez [facility]) History of salpingectomy H/O section H/O foot surgery History of back surgery Family History (Updated 11/18/23 @ 08:33 by Ivana Martinez [facility]) Mother No problems noted. Father High cholesterol Maternal Grandmother Cancer Paternal Grandmother Cardiovascular disease Clotting disorder Maternal Grandfather No problems noted. Other Mental health disorder Substance use disorder Social History (Updated 11/18/23 @ 08:21 by Ivana Martinez [facility]) Household Members: Children Alcohol intake: never Patient Tobacco Use Status: Current everyday Tobacco user Tobacco use type: Cigarette Cigarette Packs Per Day: 0.5 Cigarettes Per Day: 10 Years Smoked: 15 e-Cigarette/Vaping Use: Never Used service: No Current occupational status: employed Current occupation: [employer] Current occupational exposures/hazards: No Gender identity: Female Cognitive needs: No Hearing needs: No Vision needs: No Questionnaire PHQ-9 Over the last 2 weeks, how often have you been bothered by any of the following problems? 1. Little interest or pleasure in doing things: not at all 2. Feeling down, depressed, or hopeless: not at all 3. Trouble falling or staying asleep, or sleeping too much: more than half the days 4. Feeling tired or having little energy: nearly every day 5. Poor appetite or overeating: not at all 6. Feeling bad about yourself - or that you are a failure or have let yourself or your family down: not at all 7. Trouble concentrating on things, such as reading the newspaper or watching television: more than half the days 8. Moving or speaking so slowly that other people could have noticed. Or the opposite - being so fidgety or restless that you have been moving around a lot more than usual: not at all 9. Thoughts that you would be better off or of hurting yourself in some way: not at all Total score: 7 Depression Screening Interpretation: Positive (Narcolepsy Related) Depression Screening Follow-up: Existing condition and Follow-up Visit Requested Depression Screening Done: Yes 99072 - PHQ-9 Billing: Yes Source: Developed by Drs. Gopal Ramirez, Tahira Escobar, Markos Bass and colleagues, with an educational criselda from [email or web address]. Thrive Questionnaire Date Thrive assessed: 11/18/23 I am a: Patient What is your living situation today?: I have a steady place to live Within the past 12 months, did the food you bought not last and you didn't have the money to get more?: Never true Within the past 12 months, did you worry whether your food would run out before you got money to buy more?: Never true Do you have trouble paying for medicines?: No Do you have trouble getting transportation to medical appointments?: No Do you have trouble paying your heating and electricity bill?: No Do you have trouble taking care of your child, family member or friend?: No Do you have trouble with day-to-day activities such as bathing, preparing meals, shopping, managing finances, etc.?: No Are you currently unemployed and looking for a job?: No Are you interested in more education?: No Please select the resources that you would like help with: None Currently or been in a relationship where the following occur: no concerns reported THRIVE Score: 0 AUDIT C Alcohol Use Questionnaire (AUDIT-C) 1. How often do you have a drink containing alcohol?: Never 3. How often do you have six or more drinks on one occasion?: Never Total Score: 0 Score Reviewed/Action Taken: Yes ANNA-7 AMB Questionnaire ANNA-7 Date ANNA - 7 assessed: 11/18/23 Feeling nervous, anxious, or on edge: 2 = More than half the days Not being able to stop or control worryin = Several days Worrying too much about different things: 1 = Several days Trouble relaxin = Several days Being so restless that it is hard to sit still: 1 = Several days Becoming easily annoyed or irritable: 1 = Several days Feeling afraid as if something awful might happen: 0 = Not at all Total ANNA-7 score (0-4 normal; 5-9 mild; 10-14 moderate; 15-21 severe): 7 Source: Developed by Drs. Gopal Ramirez, Tahira Escobar, Markos Bass and colleagues, with an educational criselda from [email or web address]. ANNA-7 Assessment Billing ANNA-7 Assessment Tool: ANNA-7 Assessment [id number] Review of Systems Const Details: Constitutional: Denies fever. Skin: Denies rash. Eye: Denies eye pain. ENMT: Denies sore throat and nasal congestion. Respiratory: Denies shortness of breath and cough. Gastrointestinal: Denies nausea, vomiting or abdominal pain. Cardiovascular: Denies chest pain and syncope. Genitourinary: Denies dysuria. Musculoskeletal: Denies back pain and extremity pain. Neurologic: Denies headaches, confusion, and weakness. Psychiatric: Denies suicidal thoughts and substance abuse. Allergy/ Immunologic: Denies impaired immunity. Physical exam (Primary Care) Vital Signs: Last Vital Signs Pulse 88 11/18/23 08:13 Resp 12 11/18/23 08:13 BP 140/80 H 11/18/23 08:13 Pulse Ox 98 11/18/23 08:13 Oxygen Delivery Method Room Air 11/18/23 08:13 BMI Assessment/Plan discussion: High BMI High, discussed plan: lifestyle Tobacco/Smoking Status: Tobacco use Status Tobacco use date assessed 11/18/23 11/18/23 08:15 Patient Tobacco Use Status Current everyday Tobacco 11/18/23 08:21 Tobacco use type Cigarette 11/18/23 08:21 e-Cigarette/Vaping Use Never Used 11/18/23 08:21 Are you ready to quit: No Tobacco cessation counseling provided: Yes Items discussed: Other Relapse Prevention: discussed the importance of a supportive environment, discussed extending NRT, discussed negative mood or depression after quitting, weight gain after smoking is common and discussed dietary, exercise and/or lifestyle changes Number of minutes spent counselin CPT code: Less than 3 minutes PHQ-9: PHQ-9 Score PHQ-9: Total score 7 11/18/23 08:53 Depression Screening Interpretation: Positive (Narcolepsy Related) Depression Screening Follow-up: Existing condition and Follow-up Visit Requested Thrive Assessment: Date of Thrive Assessment Date Thrive assessed 11/18/23 11/18/23 08:18 Currently or been in a relationship where the following occur: no concerns reported Advance Care Planning discussion: Exists, not on file Date of discussion: 11/18/23 Who was present: self Forms completed: Health Care Proxy and MOLST Time spent: 1-15 minutes, not on file Actual minutes spent: 5 Const Other: General: Well developed, well nourished, in no acute distress. Appears stated age. Head: Normocephalic, atraumatic. Eyes: Pupils are equal, round and reactive to light and accommodation. Conjunctivae are clear. Vision grossly normal. Ears: TMs clear AU, EACS WNL Nose: Patent, without discharge. Mouth: There are no ulcers or lesions noted. No inflammation, no post nasal drip, no plaques nor exudates. Neck: Supple, no adenopathy or thyromegaly. Lungs: Clear to auscultation bilaterally. No rales, rhonchi or wheeze noted. Good air flow in all al. Heart: Regular rate and rhythm. No murmurs, click, rubs or gallops are noted. Abdomen: Bowel sounds present in all quadrants. The abdomen is soft, nontender, with no masses or organomegaly noted. No hernias are noted. Musculoskeletal: Joints are nontender, without swelling, redness, or effusions. Range of motion is observed to be normal. pain left wrist, starting at base of hand/thumb radiating into forearm with ROM Pulses: Peripheral pulses are equal and palpable bilaterally. Extremities: No clubbing, cyanosis nor edema is noted. Neurologic: Gait and station normal. Cranial Nerves 2-12 intact. Motor strength grossly symmetrical and intact. No sensory loss. Balance normal. Skin: No rashes, ulcers noted. Turgor is good. Skin color is good. Hair and nails are without abnormalities. Left upper arm round, raised pink skin lesion, well defined borders about the size of a dime Psych: Normal eye contact, affect and mood appropriate, and normal interactions. Patient is alert and appropriate to context. Assessment and Plan Assessment & Plan (1) Encounter for general adult medical examination without abnormal findings: Code(s): Z00.00 - Encounter for general adult medical examination without abnormal findings (2) Narcolepsy and cataplexy: Comment: managed and ff'd by [facility] neuro cont care Code(s): G47.411 - Narcolepsy with cataplexy (3) Obstructive sleep apnea: Comment: on CPAP managed and ff'd by [facility] Continue care Code(s): G47.33 - Obstructive sleep apnea (adult) (pediatric) (4) MDD (major depressive disorder), recurrent episode: Comment: not currently on meds; several meds have interactions w/ her narcolepsy meds Plan: refer to counseling Code(s): F33.9 - Major depressive disorder, recurrent, unspecified Qualifiers: Major depression episode severity: mild Qualified Code(s): F33.0 - Major depressive disorder, recurrent, mild (5) Tobacco user: Comment: not interested in quitting at this time; will do cold turkey when ready. education provided Code(s): Z72.0 - Tobacco use (6) Class 2 severe obesity with serious comorbidity and body mass index (BMI) of 37.0 to 37.9 in adult: Comment: lifestyle mods Code(s): E66.01 - Morbid (severe) obesity due to excess calories; Z68.37 - Body mass index [BMI] 37.0-37.9, adult Qualifiers: Obesity type: due to excess calories Qualified Code(s): E66.01 - Morbid (severe) obesity due to excess calories; Z68.37 - Body mass index [BMI] 37.0-37.9, adult (7) Vitamin D deficiency: Comment: currently on Vit D supplement Check labs Code(s): E55.9 - Vitamin D deficiency, unspecified (8) Left wrist pain: Comment: refer to OT for eval and tx Code(s): M25.532 - Pain in left wrist (9) Screening for malignant neoplasm of cervix: Comment: refer to aeroplane pilot Code(s): Z12.4 - Encounter for screening for malignant neoplasm of cervix (10) Dry eyes: Comment: refer to Optho Code(s): H04.123 - Dry eye syndrome of bilateral lacrimal glands (11) Laboratory exam ordered as part of routine general medical examination: Code(s): Z00.00 - Encounter for general adult medical examination without abnormal findings Orders: Orders OT Evaluation and Treatment Today M25.532 - Pain in left wrist Comprehensive Met. Panel Today E55.9 - Vitamin D deficiency, unspecified, F33.9 - Major depressive disorder, recurrent, unspecified, Z00.00 - Encounter for general adult medical examination without abnormal findings Hemoglobin A1c Today E55.9 - Vitamin D deficiency, unspecified, F33.9 - Major depressive disorder, recurrent, unspecified, Z00.00 - Encounter for general adult medical examination without abnormal findings Complete Blood Count no Diff Today E55.9 - Vitamin D deficiency, unspecified, F33.9 - Major depressive disorder, recurrent, unspecified, Z00.00 - Encounter for general adult medical examination without abnormal findings Vitamin B12 and Folate Today E55.9 - Vitamin D deficiency, unspecified, F33.9 - Major depressive disorder, recurrent, unspecified, Z00.00 - Encounter for general adult medical examination without abnormal findings IRON PROFILE Today E55.9 - Vitamin D deficiency, unspecified, F33.9 - Major depressive disorder, recurrent, unspecified, Z00.00 - Encounter for general adult medical examination without abnormal findings LDL Cholesterol Direct Today E55.9 - Vitamin D deficiency, unspecified, F33.9 - Major depressive disorder, recurrent, unspecified, Z00.00 - Encounter for general adult medical examination without abnormal findings Microalbumin, Random (w Creat) Today E55.9 - Vitamin D deficiency, unspecified, F33.9 - Major depressive disorder, recurrent, unspecified, Z00.00 - Encounter for general adult medical examination without abnormal findings TSH reflex Free T4 Today E55.9 - Vitamin D deficiency, unspecified, F33.9 - Major depressive disorder, recurrent, unspecified, Z00.00 - Encounter for general adult medical examination without abnormal findings Referrals LEATHER DRESSER Referral Z12.4 - Encounter for screening for malignant neoplasm of cervix Ophthalmology Referral H04.123 - Dry eye syndrome of bilateral lacrimal glands Counseling Referral F33.9 - Major depressive disorder, recurrent, unspecified Patient Instructions: Health screenings for women ages 18 to 39 You should visit your health care provider from time to time, even if you are healthy. The purpose of these visits is to: Screen for medical issues Assess your risk for future medical problems Encourage a healthy lifestyle Update vaccinations and other preventive care services Help you get to know your provider in case of an illness Information Even if you feel fine, you should still see your provider for regular checkups. These visits can help you avoid problems in the future. For example, the only way to find out if you have high blood pressure is to have it checked regularly. High blood sugar and high cholesterol levels also may not have any symptoms in the early stages. A simple blood test can check for these conditions. There are specific times when you should see your provider or receive specific health screenings. The [place] Preventive Services Task Force publishes a list of recommended screenings. Below are screening guidelines for women ages 18 to 39. BLOOD PRESSURE SCREENING Your blood pressure should be checked at least once every 3 to 5 years if: Your blood pressure is in the normal range (top number less than 120 mm Hg and bottom number less than 80 mm Hg) You don't have risk factors for high blood pressure Ask your provider if you need your blood pressure checked more often if: The top number is 120 to 129 mm Hg or the bottom number is 70 to 79 mm Hg You have diabetes, heart disease, kidney problems, are overweight, or have certain other health conditions You have a first-degree relative with high blood pressure You are Black You had high blood pressure during a If the top number is 130 mm Hg or greater or the bottom number is 80 mm Hg or greater, this is considered stage 1 hypertension. Schedule an appointment with your provider to learn how you can reduce your blood pressure. Watch for blood pressure screenings in your area. Ask your provider if you can stop in to have your blood pressure checked. BREAST CANCER SCREENING Experts do not agree about the benefits of breast self-exams in finding breast cancer or saving lives. Talk to your provider about what is best for you. A screening mammogram is not recommended for most women under age 40. Your provider may discuss and recommend mammograms, MRI scans, or ultrasounds if you have an increased risk for breast cancer, such as: A mother or sister who had breast cancer at a young age (most often starting screening earlier than the age the close relative was diagnosed) You carry a high-risk genetic marker CERVICAL CANCER SCREENING Cervical cancer screening should start at age 21 years unless your provider advises otherwise. After the first test: Women ages 21 through 29 should have a Pap test every 3 years. Exoprts do not agree on whether HPV testing is recommended for this age group. Women ages 30 through 65 should be screened with either a Pap test every 3 years or the HPV test every 5 years or both tests every 5 years (called cotesting ). Women who have been treated for precancer (cervical dysplasia) should continue to have Pap tests for 20 years after treatment or until age 65, whichever is longer. If you have had your uterus and cervix removed (total hysterectomy), and you have not been diagnosed with cervical cancer or precancer (high grade cervical neoplasia), you do not need cervical cancer screening. CHOLESTEROL SCREENING Cholesterol screening should begin at: Age 45 for women with no known risk factors for coronary heart disease Age 20 for women with known risk factors for coronary heart disease Repeat cholesterol screening should take place: Every 5 years for women with normal cholesterol levels More often if changes occur in lifestyle (including weight gain and diet) More often if you have diabetes, heart disease, kidney problems, or certain other conditions DIABETES SCREENING You should be screened for diabetes starting at age 35 and then repeated every 3 years if you have no risk factors for diabetes. Screening may need to start earlier and be repeated more often if you have other risk factors for diabetes, such as: You have a first degree relative with diabetes. You are overweight or have obesity. You have high blood pressure, prediabetes, or a history of heart disease. Screening for diabetes should be done if you are planning to become and you are overweight and have other risk factors such as high blood pressure. DENTAL EXAM Go to the dentist once or twice every year for an exam and cleaning. Your dentist will evaluate if you need more frequent visits. EYE EXAM Have an eye exam every 5 to 10 years before age 40. If you have vision problems, have an eye exam every 2 years or more often if recommended by your provider. You should have an eye exam that includes an examination of your retina (back of your eye) at least every year if you have diabetes. IMMUNIZATIONS Commonly needed vaccines include: Flu shot: get one every year. COVID-19 vaccine: ask your provider what is best for you. Tetanus-diphtheria and acellular pertussis (Tdap) vaccine: have one at or after age 19 as one of your tetanus-diphtheria vaccines if you did not receive it as an adolescent. Tetanus-diphtheria: have a booster (or Tdap) every 10 years. Varicella vaccine: receive 2 doses if you never had chickenpox or the varicella vaccine. Hepatitis B vaccine: receive 2, 3, or 4 doses, depending on your exact circumstances. Measles, mumps, and rubella (MMR) vaccine: receive 1 to 2 doses if you are not already immune to MMR. Your provider can tell you if you are immune. Ask your provider about the human papillomavirus (HPV) vaccine if: You have not received the HPV vaccine in the past You have not completed the full vaccine series (you should catch up on this shot) Ask your provider if you should receive other immunizations if you have certain health problems that increase your risk for some diseases such as pneumonia. INFECTIOUS DISEASE SCREENING Women who are sexually active should be screened for chlamydia and gonorrhea up until age 25. Women 25 years and older should be screened for chlamydia and gonorrhea if at high risk. Screening for hepatitis C: All adults ages 18 to 79 should get a one-time test for hepatitis C. people should be screened at every . Screening for human immunodeficiency virus (HIV): All people ages 15 to 65 should get a one-time test for HIV. Depending on your lifestyle and medical history, you may also need to be screened for infections such as syphilis and HIV, as well as other infections. PHYSICAL EXAM All adults should visit their provider from time to time, even if they are healthy. The purpose of these visits is to: Screen for disease Assess your risk of future medical problems Encourage a healthy lifestyle Update your vaccinations and other preventive care services Maintain a relationship with a provider in case of an illness Your height, weight, and BMI should be checked at every exam. During your exam, your provider may ask you about: Depression and anxiety Diet and exercise Alcohol and tobacco use Safety issues, such as using seat belts, smoke detectors, and intimate partner violence Your medicines and risk for interactions SKIN SELF-EXAM Your provider may check your skin for signs of skin cancer, especially if you're at high risk, such as if you: Have had skin cancer before Have close relatives with skin cancer Have a weakened immune system OTHER SCREENING Talk with your provider about colon cancer screening if you have a strong family history of colon cancer or polyps, or if you have had inflammatory bowel disease or polyps yourself. Routine bone density screening of women under 40 is not recommended. Smoking Cessation How to Quit There are a lot of ways to quit smoking and many resources to help you. Family members, friends, and co-workers may be supportive or encouraging, but to be successful the desire and commitment to quit must be your own. Most people who have been able to successfully quit smoking made at least one unsuccessful attempt in the past. Try not to view past attempts to quit as failures, but rather as learning experiences. Stopping smoking or using smokeless tobacco is difficult, but anyone can do it. Know the symptoms to expect when you stop. Common symptoms include: ? An intense craving for nicotine ? Anxiety, tension, restlessness, frustration, or impatience ? Difficulty concentrating ? Drowsiness or trouble sleeping, as well as bad dreams and nightmares ? Drowsiness and trouble sleeping ? Headaches ? Increased appetite and weight gain ? Irritability or depression How severe your symptoms are depends on how long you smoked and how many cigarettes you smoked each day. Feel ready to quit? ? First and foremost, set a quit date and quit completely on that day. Before your quit date, you may begin reducing your cigarette use. But remember, there is no safe level of cigarette smoking. ? List the reasons why you want to quit. Include both short- and long-term benefits. ? Identify the times you are most likely to smoke. For example, do you tend to smoke when feeling stressed or down? When out at night with friends? While drinking coffee or alcohol? When bored? While driving? Right after a meal or sex? During a work break? While watching TV or playing cards? When you are with other smokers? ? Let all of your friends, family, and co-workers know of your plan to stop smoking and your quit date. Just being aware that they know what you're going through can be helpful, especially when you are grumpy. ? Get rid of all your cigarettes just before the quit date, and clean out anything that smells like smoke, such as clothes and furniture. Make a plan about what you will do instead of smoking at those times when you are most likely to smoke. ? Be as specific as possible. For example, drink tea instead of coffee -- tea may not trigger the desire for a cigarette. Or, take a walk when you feel stressed. ? Remove ashtrays and cigarettes from the car. Place pretzels or hard candies there instead. Pretend-smoke with a straw. ? Find activities that focus your hands and mind but are not taxing or fattening. Computer games, solitaire, knitting, sewing, and crossword puzzles may help. ? If you normally smoke after eating, find other ways to end a meal. Play a tape or CD, eat a piece of fruit, get up and make a phone call, or take a walk (a good distraction that also james calories). Make other changes in your lifestyle. ? Change your daily schedule and habits. Eat at different times or eat several small meals instead of three large ones. Sit in a different chair or even a different room. ? Satisfy your oral habits by eating celery or other low-calorie snack, chewing sugarless gum, or sucking on a cinnamon stick. ? Go to public places and restaurants where smoking is prohibited or restricted. ? Eat regular meals and don't eat too much candy or sweet things. ? Get more exercise. Take walks or ride a bike. Exercise helps relieve the urge to smoke. Set short-term quitting goals and reward yourself when you meet them. ? Every day, put the money you normally spend on cigarettes in a jar. Then buy something pleasurable after a period of time. ? Try not to think about all the days ahead you will need to avoid smoking. Take it one day at a time. ? Even one puff or one cigarette will make your desire for more cigarettes even stronger. However, it is normal to make mistakes. So even if you have one cigarette, you don't need to take the next one. Other tips to help you quit smoking and stick to it: ? Enroll in a smoking cessation program (hospitals, health departments, community centers, and work sites often offer programs). Learn about self-hypnosis or other techniques. ? Ask your health care provider about prescription medications that are safe and appropriate for you. ? Find out about nicotine patches, gum, and sprays. The [employer]'s web site -- www.cancer.org -- is an excellent resource for smokers who are trying to quit, and the [employer] [place] [employer] can help some smokers kick the habit. Above all, don't get discouraged if you aren't able to quit smoking the first time. Nicotine addiction is a hard habit to break. Try something different next time. Develop new strategies, and try again. Many people take several attempts to finally kick the habit. Coding Level of Care Code New Pt Prev Care 18-39yr(78801 Diagnoses Encounter for general adult medical examination without abnormal findings Z00.00 Narcolepsy and cataplexy G47.411 Obstructive sleep apnea G47.33 Mild episode of recurrent major depressive disorder F33.0 Major depression episode severity: mild Tobacco user Z72.0 Class 2 severe obesity due to excess calories with serious comorbidity and body mass index (BMI) of 37.0 to 37.9 in adult E66.01; Z68.37 Obesity type: due to excess calories Vitamin D deficiency E55.9 Left wrist pain M25.532 Screening for malignant neoplasm of cervix Z12.4 Dry eyes H04.123 Laboratory exam ordered as part of routine general medical examination Z00.00 Additional Codes ANNA-7 Assessment Billing - ANNA-7 Assessment Tool: ANNA-7 Assessment [id number] ([id number]) Vital Signs *Quality* - Advance Care Planning discussion: Exists, not on file ([id number]) Vital Signs *Quality* - Time spent: 1-15 minutes, not on file ([id number])
[2023-11-18 08:13] VITALS: BP 140/80; PULSE 88; RESP 12; O2SAT 98
[2023-11-18 09:59] VITALS: BP 108/56
== END 2023-11-18 10:46 | disposition home or self-care (01) ==
PROVIDERS: PCP Internal Medicine; Visit Provider Nurse Practitioner Family
DX: Z00.00 Encounter for general adult medical examination without abnormal findings (principal); F33.0 Major depressive disorder, recurrent, mild; E66.01 Morbid (severe) obesity due to excess calories; G47.411 Narcolepsy with cataplexy; G47.33 Obstructive sleep apnea (adult) (pediatric); Z72.0 Tobacco use; Z68.37 Body mass index [BMI] 37.0-37.9, adult; E55.9 Vitamin D deficiency, unspecified; M25.532 Pain in left wrist; H04.123 Dry eye syndrome of bilateral lacrimal glands
CPT/HCPCS: 1124F; 99395

== ENCOUNTER 2023-11-18 10:16 | Outpatient (REF) | payer OTHER, SELFPAY ==
[2023-11-18 11:50] LABS: Hematocrit 44.3 % (37.0-47.0); Hemoglobin 14.9 g/dl (12.0-16.0); Mean Corpuscular HGB Conc 33.6 g/dl (31.0-35.0); Mean Corpuscular Hemoglobin 32.2 pg (27.0-33.0); Mean Corpuscular Volume 95.7 fL (80.0-98.0); Mean Platelet Volume 10.7 fL (9.4-12.3); Platelet Count 263 X10*3/uL (160-400); Red Blood Count 4.63 X10*6/uL (4.20-5.50); Red Cell Distribution Width 13.6 % (11.0-16.0); White Blood Count 10.2 X10*3/uL (4.8-10.8)
[2023-11-18 12:06] LABS: Estimated Average Glucose 100 mg/dL; Hemoglobin A1c % 5.1 % (<6.0)
[2023-11-18 12:47] LABS: Creatinine Urine 101.29 mg/dL; Microalbum/Creatinine Ratio Ur 6.9 ug/mg cr (<30)
[2023-11-18 13:02] LABS: Alanine Aminotransferase 22 U/L (0-31); Albumin Level 4.3 g/dL (3.5-5.0); Alkaline Phosphatase 43 U/L (39-117); Anion Gap 13 (12-20); Aspartate Amino Transferase 21 U/L (5-31); Bilirubin Total 0.3 mg/dL (0.0-1.0); Blood Urea Nitrogen 14 mg/dL (9-16); Calcium 9.6 mg/dL (8.4-10.2); Carbon Dioxide 23 mmol/L (22-29); Chloride 107 mmol/L (96-108); Estimated Glomerular Filt Rate > 60; Glucose Random 106 mg/dL (60-115); Iron 121 mcg/dL (30-160); Percent Iron Saturation 34 % (15-50); Potassium 4.3 mmol/L (3.3-5.1); Sodium 139 mmol/L (135-145); Total Iron Binding Capacity 353 mcg/dL (228-428); Total Protein 7.5 g/dL (6.5-8.0); Unsaturated Iron Binding 232 ug/dL
[2023-11-18 13:04] LABS: Folate 7.9 ng/mL (> or = 4.0); Vitamin B12 464 pg/mL (200-900)
[2023-11-18 13:13] LABS: TSH reflex Free T4 1.75 uIU/mL (0.32-4.0)
[2023-11-19 15:54] LABS: LDL Cholesterol Direct 211 mg/dL (<100)
== END 2023-11-18 10:17 | disposition home or self-care (01) ==
LOC: HO.WFDLDS 10:16
PROVIDERS: Visit Provider Nurse Practitioner Family
DX: Z00.00 Encounter for general adult medical examination without abnormal findings (principal); E55.9 Vitamin D deficiency, unspecified; F33.9 Major depressive disorder, recurrent, unspecified
CPT/HCPCS: 36415; 80053; 82043; 82570; 82607; 82746; 83036; 83540; 83721; 84443; 85027

== ENCOUNTER 2023-12-06 13:06 | Outpatient (RCR) | payer OTHER, SELFPAY | END 2024-01-17 16:25 | disposition home or self-care (01) | LOC: HO.OT 13:06 | PROVIDERS: PCP Nurse Practitioner Family; Visit Provider Nurse Practitioner Family | DX: M25.532 Pain in left wrist (principal) | CPT/HCPCS: 97110; 97166 ==

== ENCOUNTER 2024-01-23 08:08 | Outpatient (AMB) | payer OTHER, SELFPAY ==
--- NOTE | 2024-01-23 08:09 | MHC.OFFWIV ---
Intake Vital Signs 01/23/24 08:19 Height 5 ft 4 in Weight 210 lb BMI 36.0 BP 108/64 Blood Pressure Location Lt brachial Position Sitting Respiration 13 Pulse 80 Pulse Source Pulse Oximeter Pulse Oximetry (%) 96 Oxygen Delivery Method Room Air Intake Visit Reasons: Possible UTI Intake Note: Patient complains of possible UTI related to not drinking enough water. Patient reports burning sensation along with odor and abnormal smell x2 days and worsening. Patient Tobacco Use Status: Current everyday Tobacco user Heat Treatment Technician Required: No Heat Treatment Technician Name: Not needed Accompanied by: Self / Same As Patient Allergies Sulfa (Sulfonamide Antibiotics) Allergy (Unknown, Verified 01/23/24 08:21) HIVES Medication List - Last Reconciled 01/23/24 by CHRISTIAN Villafuerte- atorvastatin 40 mg PO BEDTIME cholecalciferol (vitamin D3) 125 mcg PO DAILY cyanocobalamin (vitamin B-12) 1,000 mcg PO DAILY fluticasone propionate 50 mcg/actuation (Flonase Allergy Relief) 1 spray intranasal Q12H 30 days ibuprofen 800 mg PO Q8H PRN levonorgestrel (Mirena) intrauterine modafinil 1 tabs qam and 1 tab at noon PO 2 times a day; pitolisant (Wakix) 17.8 mg PO DAILY sodium,calcium,mag,pot oxybate 0.5 gram/mL (Xywav) 4.5 grams (9 mL) PO BID Do you need a note to return to daycare/school/sports/work: No HPI HPI Comments History of Present Illness Details 38 y/o F with obstructive sleep apnea, narcolepsy and cataplexy, major depressive disorder, vitamin-D deficiency, current tobacco user, allergic conjunctivitis, obesity Here today with concern for UTI. Admits to poor PO intake over the weekend sx started yesterday Urgency, foul smelling urine, dysuria Last UTI > 6 months ago Urine dip today shows positive leukocytes, protein, blood. Negative for nitrites. PE Awake alert NAD MMM RRR No CVAT + SP tenderness Plan: Amox 875mg po BID x 3, liberal hydration Reports yeast from AB in the past, PRN diflucan sent to pharm w/ edu on use Edu on reasons to RTO [facility] Medical History (Updated 11/23/23 @ 07:43 by CHRISTIAN Villafuerte-BC) Degenerative disc disease, lumbar Recurrent otitis media Narcolepsy and cataplexy Obstructive sleep apnea Depression Surgical History (Updated 11/18/23 @ 08:23 by Ivana Martinez CMA) History of salpingectomy H/O section H/O foot surgery History of back surgery Family History (Updated 11/18/23 @ 08:33 by Ivana Martinez CMA) Mother No problems noted. Father High cholesterol Maternal Grandmother Cancer Paternal Grandmother Cardiovascular disease Clotting disorder Maternal Grandfather No problems noted. Other Mental health disorder Substance use disorder Social History (Updated 11/18/23 @ 08:21 by Ivana Martinez CMA) Household Members: Children 75 years or older and lives alone: No Alcohol intake: never Patient Tobacco Use Status: Current everyday Tobacco user Tobacco use type: Cigarette Cigarette Packs Per Day: 0.5 Cigarettes Per Day: 10 Years Smoked: 15 e-Cigarette/Vaping Use: Never Used service: No Current occupational status: employed Current occupation: [employer] Current occupational exposures/hazards: No Gender identity: Female Cognitive needs: No Hearing needs: No Vision needs: No Review of Systems Const All systems reviewed & are unremarkable except as noted in HPI and below Physical Exam Vital Signs: Last Vital Signs Pulse 80 01/23/24 08:19 Resp 13 01/23/24 08:19 BP 108/64 01/23/24 08:19 Pulse Ox 96 01/23/24 08:19 Oxygen Delivery Method Room Air 01/23/24 08:19 BMI result Body Mass Index 36.0 Results AMB Urinalysis Dipstick UR Leukocytes Moderate Last Edit by Ivana Martinez CMA on 01/23/24 08:23 UR Nitrite Negative Last Edit by Ivana Martinez CMA on 01/23/24 08:23 UR Urobilinogen Normal Last Edit by Ivana Martinez CMA on 01/23/24 08:23 UR Protein Trace Last Edit by Ivana Martinez CMA on 01/23/24 08:23 UR Ph Last Edit by Ivana Martinez CMA on 01/23/24 08:23 UR Blood Last Edit by Ivana Martinez CMA on 01/23/24 08:23 UR Specific [place] 1.010 Last Edit by Ivana Martinez, AMARI on 01/23/24 08:23 UR Ketone Negative Last Edit by Ivana Martinez, AMARI on 01/23/24 08:23 UR Bilirubin Negative Last Edit by Ivana Martinez, AMARI on 01/23/24 08:23 UR Glucose Negative Last Edit by Ivana Martinez, AMARI on 01/23/24 08:23 Assessment & Plan Assessment & Plan (1) UTI (urinary tract infection): Code(s): N39.0 - Urinary tract infection, site not specified Qualifiers: Urinary tract infection type: acute cystitis Hematuria presence: with hematuria Qualified Code(s): N30.01 - Acute cystitis with hematuria Plan: . Plan . Orders: Orders AMB Urinalysis Dipstick Today R30.9 - Painful micturition, unspecified Medications: New amoxicillin 875 mg PO BID 6 tabs 0RF fluconazole 150 mg PO DAILY 1 day 1 tab 0RF Coding Level of Care Code Est Pt Level 3 (50038) Diagnoses Acute cystitis with hematuria N30.01 Urinary tract infection type: acute cystitis Hematuria presence: with hematuria
[2024-01-23 08:19] VITALS: BP 108/64; PULSE 80; RESP 13; O2SAT 96; BMI 36.0
== END 2024-01-23 09:56 | disposition home or self-care (01) ==
PROVIDERS: PCP Nurse Practitioner Family; Visit Provider Nurse Practitioner Family
DX: N30.01 Acute cystitis with hematuria (principal); R30.9 Painful micturition, unspecified
CPT/HCPCS: 81002; 99213

== ENCOUNTER 2024-01-27 10:14 | Outpatient (REF) | payer OTHER, SELFPAY ==
[2024-01-27 14:06] LABS: Appearance Urine Turbid; Color Urine Dark Yellow; Glucose Urine UA Negative (Negative); Leukocyte Esterase Urine Large (3+) (Negative); Nitrite Urine Negative (Negative); UMIC TRIGGER UACC YES; Urine Blood Moderate (2+) (Negative); Urine Ketones Trace mg/dL (Negative); Urine Protein 30 (1+) mg/dL (Neg-Trace)
[2024-01-27 14:08] LABS: Bacteria Urine 1+ (None Seen); Hyaline Casts Urine 0-2 /LPF (0-2); RBC Urine >20 /HPF (0-2); Squamous Epithelial Cell Urine >20 /HPF (0-2); UACC Culture Trigger YES; WBC Urine >50 /HPF (0-5)
== END 2024-01-27 10:15 | disposition home or self-care (01) ==
LOC: HO.WFDLDS 10:14
PROVIDERS: Visit Provider Nurse Practitioner Family
DX: R30.0 Dysuria (principal)
CPT/HCPCS: 81001; 87086; 87088; 87186

== ENCOUNTER 2024-01-30 09:01 | Outpatient (AMB) | payer OTHER, SELFPAY ==
--- NOTE | 2024-01-30 09:12 | A.OFFPC_ITS ---
Vital Signs 01/30/24 09:16 Height 5 ft 4 in Weight 222 lb 6 oz BMI 38.2 BP 104/52 L Blood Pressure Location Lt brachial Position Sitting Respiration 12 Pulse 87 Pulse Source Pulse Oximeter Temp 98.5 F Temp Source Oral Pulse Oximetry (%) 97 Oxygen Delivery Method Room Air Intake Visit Reasons: Tick bite Intake Note: Tick bite, left shoulder blade. Control Systems Technician Required: No Allergies Sulfa (Sulfonamide Antibiotics) Allergy (Unknown, Verified 01/30/24 09:34) HIVES Medication List - Last Reconciled 01/30/24 by GIOVANY Villafuerte atorvastatin 40 mg PO BEDTIME cholecalciferol (vitamin D3) 125 mcg PO DAILY cyanocobalamin (vitamin B-12) 1,000 mcg PO DAILY fluconazole 150 mg PO DAILY 1 day fluticasone propionate 50 mcg/actuation (Flonase Allergy Relief) 1 spray intranasal Q12H 30 days ibuprofen 800 mg PO Q8H PRN levonorgestrel (Mirena) intrauterine modafinil 1 tabs qam and 1 tab at noon PO 2 times a day; nitrofurantoin monohyd/m-cryst 100 mg 100 mg PO Q12H 5 days pitolisant (Wakix) 17.8 mg PO DAILY sodium,calcium,mag,pot oxybate 0.5 gram/mL (Xywav) 4.5 grams (9 mL) PO BID Tobacco use date assessed: 11/18/23 Dental Screening Dental Screen Date: 11/18/23 HPI HPI Comments History of Present Illness Details Here today with complaints of a tick bite. Went camping last week. This morning noticed a pumpkin seed size tick on her back, left shoulder area. Her father was able to remove this. She reports there is a small piece of retained tick present. Denies constitutional symptoms Exam In the area of the left shoulder blade there is a erythematous scabbed area, the scab was removed in the contents of the tick were also removed. The skin was cleansed and a dry clean dressing was applied. There is no bull's eye or petechiae Plan Doxycycline for 21 days. Tick prevention reviewed today [facility] Medical History (Updated 11/23/23 @ 07:43 by GIOVANY Villafuerte) Degenerative disc disease, lumbar Recurrent otitis media Narcolepsy and cataplexy Obstructive sleep apnea Depression Surgical History (Updated 11/18/23 @ 08:23 by Ivana Martinez CMA) History of salpingectomy H/O section H/O foot surgery History of back surgery Family History (Updated 11/18/23 @ 08:33 by Ivana Martienz CMA) Mother No problems noted. Father High cholesterol Maternal Grandmother Cancer Paternal Grandmother Cardiovascular disease Clotting disorder Maternal Grandfather No problems noted. Other Mental health disorder Substance use disorder Social History (Updated 11/18/23 @ 08:21 by Ivana Martinez CMA) Household Members: Children 75 years or older and lives alone: No Alcohol intake: never Patient Tobacco Use Status: Current everyday Tobacco user Tobacco use type: Cigarette Cigarette Packs Per Day: 0.5 Cigarettes Per Day: 10 Years Smoked: 15 e-Cigarette/Vaping Use: Never Used service: No Current occupational status: employed Current occupation: [employer] Current occupational exposures/hazards: No Gender identity: Female Cognitive needs: No Hearing needs: No Vision needs: No Questionnaire Thrive Questionnaire Date Thrive assessed: 11/18/23 ANNA-7 AMB Questionnaire ANNA-7 Date ANNA - 7 assessed: 11/18/23 Source: Developed by Drs. Gopal Ramirez, Tahira Escobar, Markos Bass and colleagues, with an educational criselda from [employer]. Physical exam (Primary Care) Vital Signs: Last Vital Signs Temp 98.5 F 01/30/24 09:16 Pulse 87 01/30/24 09:16 Resp 12 01/30/24 09:16 BP 104/52 L 01/30/24 09:16 Pulse Ox 97 01/30/24 09:16 Oxygen Delivery Method Room Air 01/30/24 09:16 BMI result Body Mass Index 38.2 Tobacco/Smoking Status: Tobacco use Status Tobacco use date assessed 11/18/23 01/30/24 09:18 Patient Tobacco Use Status Current everyday Tobacco 01/30/24 09:18 Tobacco use type Cigarette 01/30/24 09:18 e-Cigarette/Vaping Use Never Used 01/30/24 09:18 Thrive Assessment: Date of Thrive Assessment Date Thrive assessed 11/18/23 01/30/24 09:18 Assessment and Plan Assessment & Plan (1) Tick bite of back: Code(s): S30.860A - Insect bite (nonvenomous) of lower back and pelvis, initial encounter; W57.XXXA - Bitten or stung by nonvenomous insect and other nonvenomous arthropods, initial encounter Qualifiers: Encounter type: initial encounter Qualified Code(s): S30.860A - Insect bite (nonvenomous) of lower back and pelvis, initial encounter; W57.XXXA - Bitten or stung by nonvenomous insect and other nonvenomous arthropods, initial encounter Medications: New doxycycline hyclate 100 mg PO BID 21 days 42 caps 0RF Coding Level of Care Code Est Pt Level 3 (49313) Diagnoses Tick bite of back, initial encounter S30.860A; W57.XXXA Encounter type: initial encounter
[2024-01-30 09:16] VITALS: BP 104/52; PULSE 87; RESP 12; TEMP 36.9; O2SAT 97; BMI 38.2
== END 2024-01-30 09:43 | disposition home or self-care (01) ==
LOC: HO.HMGFM 09:01
PROVIDERS: PCP Nurse Practitioner Family; Visit Provider Nurse Practitioner Family
DX: S30.860A Insect bite (nonvenomous) of lower back and pelvis, initial encounter (principal); W57.XXXA Bitten or stung by nonvenomous insect and other nonvenomous arthropods, initial encounter
CPT/HCPCS: 99213

== ENCOUNTER 2024-04-02 08:06 | Outpatient (AMB) | payer OTHER, SELFPAY ==
--- NOTE | 2024-04-02 08:14 | AM.OFFWIN_ITS ---
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 Her symptoms have been present for the past 3 days. She took Azo last night without relief. She reports history of frequent urinary tract infections. She notes that she had yeast infection the last time she completed antibiotic treatment for UTI. She denies constitutional symptoms. She denies n/v/d. She denies abdominal pain. She admits to good genital hygiene w/o scented products. [facility] Medical History (Updated 11/23/23 @ 07:43 by Shana Hightower [facility]) Degenerative disc disease, lumbar Recurrent otitis media Narcolepsy and cataplexy Obstructive sleep apnea Depression Surgical History (Updated 11/18/23 @ 08:23 by Ivana Martinez CMA) History of salpingectomy H/O section H/O foot surgery History of back surgery Family History (Updated 11/18/23 @ 08:33 by Ivana Martinez CMA) Mother No problems noted. Father High cholesterol Maternal Grandmother Cancer Paternal Grandmother Cardiovascular disease Clotting disorder Maternal Grandfather No problems noted. Other Mental health disorder Substance use disorder Social History (Updated 11/18/23 @ 08:21 by Ivana Martinez CMA) Household Members: Children Alcohol intake: never Patient Tobacco Use Status: Current everyday Tobacco user Tobacco use type: Cigarette Cigarette Packs Per Day: 0.5 Cigarettes Per Day: 10 Years Smoked: 15 e-Cigarette/Vaping Use: Never Used service: No Current occupational status: employed Current occupation: [employer] Current occupational exposures/hazards: No Gender identity: Female Cognitive needs: No Hearing needs: No Vision needs: No Review of Systems Const Details: Const Denies chills, Denies fatigue, Denies fever(s), Denies headache(s) and Denies weakness ENT Denies change in vision, Denies dizziness, Denies headache(s), Denies hearing loss, Denies nasal congestion, Denies sinus pain, Denies sinus pressure and Denies sore throat Resp Denies cough, Denies dyspnea, Denies wheezing and Denies other (shortness of breath) Cardio Denies chest pain, Denies lightheadedness, Denies dyspnea and Denies other (palpitations) Neuro Denies dizziness, Denies headache(s), Denies numbness, Denies tingling and Denies weakness Reports as per HPI Endo Denies fatigue Aller/Immun Denies wheezing Physical Exam Const Other: Const General: well developed; No acute distress Nutritional Appearance: well nourished Orientation/consciousness: patient oriented x3 HEENT Head: Yes normocephalic and Yes atraumatic Eyes General: appearance normal, both eyes and all related structures Pupils: Equal, round and reactive pupils present EOM: EOMs intact bilaterally Resp Effort & Inspection: normal respiratory effort Auscultation: clear to auscultation bilaterally Cardio Rate: regular rate Rhythm: regular rhythm Heart sounds: S1 normal heart sound present, S2 normal heart sound present, no gallops, no murmurs and no rubs Bruits: no abdominal aortic bruits and no carotid bruits GI Abdomen is soft, nontender, nondistended, active bowel sounds x4 No CVA tenderness Neuro General: patient oriented x3 and gait normal, no focal neuro deficit Cranial nerves: Yes Equal, round and reactive pupils present Psych Affect: normal affect Results AMB Urinalysis Dipstick UR Leukocytes Large Last Edit by Dipika Hobson on 04/02/24 09:04 UR Nitrite Positive Last Edit by Dipika Hobson on 04/02/24 09:04 UR Urobilinogen Normal Last Edit by Dipika Hobson on 04/02/24 09:04 UR Protein Negative Last Edit by Dipika Hobson on 04/02/24 09:04 UR Ph 6.0 Last Edit by Dipika Hobson on 04/02/24 09:04 UR Blood Small Last Edit by Dipika Hobson on 04/02/24 09:04 UR Specific [place] 1.025 Last Edit by Dipika Hobson on 04/02/24 09:04 UR Ketone Negative Last Edit by Dipika Hobson on 04/02/24 09:04 UR Bilirubin Small Last Edit by Dipika Hobson on 04/02/24 09:04 UR Glucose Negative Last Edit by Dipika Hobson on 04/02/24 09:04 Assessment & Plan Assessment & Plan (1) UTI (urinary tract infection): Code(s): N39.0 - Urinary tract infection, site not specified Plan: The urinalysis is positive for leukocytes, nitrites, and blood Macrobid and fluconazole ordered. Advised to take as prescribed. Instructed on the risks, benefits, and potential adverse reactions of the medications Adequate hydration encouraged Urine sample sent to the lab for culture and sensitivity Follow-up with PCP or return sooner with worsening or new symptoms Verbalized understanding and agreed with the plan Orders: Orders UA CC w/rflx Micro + Cult Today N39.0 - Urinary tract infection, site not specified AMB Urinalysis Dipstick Today Z13.9 - Encounter for screening, unspecified Medications: New fluconazole may repeat second dose 72 hrs after first dose if symptoms persist 150 mg PO Q3D 2 tabs 0RF Refilled nitrofurantoin monohyd/m-cryst 100 mg must administer with a meal/food 100 mg PO Q12H 5 days 10 caps 0RF Coding Level of Care Code Est Pt Level 3 (24164) Diagnoses UTI (urinary tract infection) N39.0
[2024-04-02 08:40] VITALS: BP 112/54; PULSE 94; RESP 16; TEMP 36.7; O2SAT 95; BMI 38.1
== END 2024-04-02 08:57 | disposition home or self-care (01) ==
PROVIDERS: PCP Nurse Practitioner Family; Visit Provider Nurse Practitioner Family
DX: Z13.9 Encounter for screening, unspecified (principal); N39.0 Urinary tract infection, site not specified
CPT/HCPCS: 81002; 99213

== ENCOUNTER 2024-04-02 08:34 | Outpatient (REF) | payer OTHER, SELFPAY ==
[2024-04-02 14:50] LABS: Appearance Urine Turbid; Color Urine Dark Yellow; Glucose Urine UA Negative (Negative); Leukocyte Esterase Urine Large (3+) (Negative); Nitrite Urine Positive (Negative); PH 5.5 (5.0-9.0); Specific Gravity - Urine 1.025 (1.005-1.025); UMIC TRIGGER UACC YES; Urine Blood Small (1+) (Negative); Urine Ketones Trace mg/dL (Negative); Urine Protein 30 (1+) mg/dL (Neg-Trace)
[2024-04-02 14:55] LABS: Bacteria Urine 1+ (None Seen); Hyaline Casts Urine 0-2 /LPF (0-2); UACC Culture Trigger YES; WBC Urine >50 /HPF (0-5)
== END 2024-04-02 08:35 | disposition home or self-care (01) ==
LOC: HO.LAB 08:34
PROVIDERS: Visit Provider Nurse Practitioner Family
DX: N39.0 Urinary tract infection, site not specified (principal); R82.79 Other abnormal findings on microbiological examination of urine
CPT/HCPCS: 81001; 87086; 87088; 87186

== ENCOUNTER 2024-05-29 16:21 | Outpatient (REF) | payer OTHER, SELFPAY | END 2024-05-29 16:22 | disposition home or self-care (01) | LOC: HO.SH 16:21 | PROVIDERS: Visit Provider Nurse Practitioner Family | DX: Z01.118 Encounter for examination of ears and hearing with other abnormal findings (principal); H93.293 Other abnormal auditory perceptions, bilateral | CPT/HCPCS: 92557; 92567; 92700 ==

== ENCOUNTER 2024-06-07 10:14 | Outpatient (AMB) | payer OTHER, SELFPAY ==
--- NOTE | 2024-06-07 10:18 | MHC.PC.OV ---
Vital Signs 06/07/24 10:19 Height 5 ft 3 in Weight 213 lb BMI 37.7 BP 112/62 Blood Pressure Location Lt brachial Position Sitting Pulse 97 Pulse Source Pulse Oximeter Pulse Oximetry (%) 98 Oxygen Delivery Method Room Air Intake Visit Reasons: pfmla paperwork Allergies Sulfa (Sulfonamide Antibiotics) Allergy (Unknown, Verified 06/07/24 10:19) HIVES Medication List - Last Reconciled 06/07/24 by Shana Hightower, [facility]- atorvastatin 40 mg PO BEDTIME cholecalciferol (vitamin D3) 125 mcg PO DAILY cyanocobalamin (vitamin B-12) 1,000 mcg PO DAILY fluticasone propionate 50 mcg/actuation (Flonase Allergy Relief) 1 spray intranasal Q12H 30 days ibuprofen 800 mg PO Q8H PRN levonorgestrel (Mirena) intrauterine modafinil 1 tabs qam and 1 tab at noon PO 2 times a day; pitolisant (Wakix) 17.8 mg PO DAILY sodium,calcium,mag,pot oxybate 0.5 gram/mL (Xywav) 4.5 grams (9 mL) PO BID 30 days Tobacco use date assessed: 11/18/23 Dental Screening Dental Screen Date: 11/18/23 HPI HPI Comments History of Present Illness Details 38 y/o F with obstructive sleep apnea, narcolepsy and cataplexy, major depressive disorder, vitamin-D deficiency, current tobacco user, allergic conjunctivitis, obesity Status post salpingectomy, , foot surgery, lumbar laminectomy with microdiscectomy 08/10/2018 Dr sEposito Family history: Mother from lung cancer, paternal grandfather with lung cancer and Crohn's, maternal grandmother with lung cancer, maternal uncle with lung cancer, maternal grandfather with renal cancer Health maintenance High-grade squamous antra epithelial lesion 2016; Pap 08/09/2019 negative cotest, Tdap 11/08/2014 Flu 2023 Specialists Sleep medicine Neurology Dermatology* Has not followed in some time. Here today for FMLA paperwork. She currently has an active FMLA for intermittent absences for her cataplexy and narcolepsy as well as her obstructive sleep apnea. This need is medically necessary and allows her for 5 occurrences per week with 1 hour per episode to accommodate her inability to drive due to inability to become wakeful enough to operate a motor goal vehicle to get to work on time consistently. Paperwork was completed with the patient and original returned to her. The date of this leave is 05/26/2024 through 09/29/2024. This note is constructed using voice recognition software. While every effort has been made to ensure accuracy in pest control worker, still errors may have been included Sometimes, these errors may affect the content or meaning of the given sentence . Total time spent caring for the patient today was 20 minutes. This includes time spent before the visit reviewing the chart, time spent during the visit, and time spent after the visit on documentation [facility] Medical History (Updated 05/25/24 @ 12:25 by SADAF Villafuerte) Degenerative disc disease, lumbar Recurrent otitis media Narcolepsy and cataplexy Obstructive sleep apnea Depression Surgical History (Updated 11/18/23 @ 08:23 by Ivana Martinez [facility]) History of salpingectomy H/O section H/O foot surgery History of back surgery Family History (Updated 11/18/23 @ 08:33 by Ivana Martinez [facility]) Mother No problems noted. Father High cholesterol Maternal Grandmother Cancer Paternal Grandmother Cardiovascular disease Clotting disorder Maternal Grandfather No problems noted. Other Mental health disorder Substance use disorder Social History (Updated 11/18/23 @ 08:21 by Ivana Martinez [facility]) Household Members: Children 75 years or older and lives alone: No Alcohol intake: never Patient Tobacco Use Status: Current everyday Tobacco user Tobacco use type: Cigarette Cigarette Packs Per Day: 0.5 Cigarettes Per Day: 10 Years Smoked: 15 e-Cigarette/Vaping Use: Never Used service: No Current occupational status: employed Current occupation: [employer] Current occupational exposures/hazards: No Gender identity: Female Cognitive needs: No Hearing needs: No Vision needs: No Questionnaire Thrive Questionnaire Date Thrive assessed: 06/04/24 I am a: Patient What is your living situation today?: I have a steady place to live Within the past 12 months, did the food you bought not last and you didn't have the money to get more?: Never true Do you have trouble paying for medicines?: No Do you have trouble paying your heating and electricity bill?: No Do you have trouble taking care of your child, family member or friend?: No Do you have trouble with day-to-day activities such as bathing, preparing meals, shopping, managing finances, etc.?: No Are you currently unemployed and looking for a job?: No Are you interested in more education?: No Please select the resources that you would like help with: None Currently or been in a relationship where the following occur: I choose not to answer THRIVE Score: 0 AUDIT C Alcohol Use Questionnaire (AUDIT-C) 1. How often do you have a drink containing alcohol?: Never 3. How often do you have six or more drinks on one occasion?: Never Total Score: 0 ANNA-7 AMB Questionnaire ANNA-7 Date ANNA - 7 assessed: 11/18/23 Feeling nervous, anxious, or on edge: 0 = Not at all Not being able to stop or control worryin = Not at all Worrying too much about different things: 0 = Not at all Trouble relaxin = Not at all Being so restless that it is hard to sit still: 0 = Not at all Becoming easily annoyed or irritable: 0 = Not at all Feeling afraid as if something awful might happen: 0 = Not at all Total ANNA-7 score (0-4 normal; 5-9 mild; 10-14 moderate; 15-21 severe): 0 Source: Developed by Drs. Gopal Ramirez, Tahira Escobar, Markos Bass and colleagues, with an educational criselda from [employer]. Physical exam (Primary Care) Vital Signs: Last Vital Signs BP 112/62 06/07/24 10:19 BMI result Body Mass Index 37.7 Tobacco/Smoking Status: Tobacco use Status Tobacco use date assessed 11/18/23 06/07/24 10:19 Patient Tobacco Use Status Current everyday Tobacco 06/07/24 10:19 Tobacco use type Cigarette 06/07/24 10:19 e-Cigarette/Vaping Use Never Used 06/07/24 10:19 Thrive Assessment: Date of Thrive Assessment Date Thrive assessed 06/04/24 06/07/24 10:19 Currently or been in a relationship where the following occur: I choose not to answer Coding Level of Care Code Est Pt Level 3 (86352) Complex EM visit Add On G2211 Diagnoses Narcolepsy and cataplexy G47.411 Encounters for administrative purpose Z02.9 Assessment & Plan Assessment & Plan (1) Narcolepsy and cataplexy: Comment: managed and ff'd by [facility] care Code(s): G47.411 - Narcolepsy with cataplexy Category: Medical Plan: . (2) Encounters for administrative purpose: Code(s): Z02.9 - Encounter for administrative examinations, unspecified Plan: .
[2024-06-07 10:19] VITALS: BP 112/62; PULSE 97; O2SAT 98; BMI 37.7
== END 2024-06-07 10:58 | disposition home or self-care (01) ==
LOC: HO.HMCFM 10:14
PROVIDERS: PCP Nurse Practitioner Family; Visit Provider Nurse Practitioner Family
DX: G47.411 Narcolepsy with cataplexy (principal)

== ENCOUNTER → 2024-06-07 10:14 | Outpatient (BNVA) | payer OTHER, SELFPAY | PROVIDERS: PCP Nurse Practitioner Family; Visit Provider Nurse Practitioner Family | DX: G47.411 Narcolepsy with cataplexy (principal) | CPT/HCPCS: 99212 ==

== ENCOUNTER 2024-08-06 08:21 | Outpatient (AMB) | payer OTHER, SELFPAY ==
--- NOTE | 2024-08-06 08:22 | AM.OFFWIN_ITS ---
Intake Vital Signs 08/06/24 08:23 Height 5 ft 3 in Weight 213 lb BMI 37.7 BP 124/66 Blood Pressure Location Lt brachial Position Sitting Respiration 12 Pulse 95 Pulse Source Pulse Oximeter Pulse Oximetry (%) 98 Oxygen Delivery Method Room Air Intake Visit Reasons: uti Intake Note: Patient complaining of uti sx Patient Tobacco Use Status: Current everyday Tobacco user Allergies Sulfa (Sulfonamide Antibiotics) Allergy (Unknown, Verified 08/06/24 08:49) HIVES Medication List - Last Reconciled 08/06/24 by Shana Hightower, [employer]- atorvastatin 40 mg PO BEDTIME cholecalciferol (vitamin D3) 125 mcg PO DAILY cyanocobalamin (vitamin B-12) 1,000 mcg PO DAILY fluticasone propionate 50 mcg/actuation (Flonase Allergy Relief) 1 spray intranasal Q12H 30 days ibuprofen 800 mg PO Q8H PRN levonorgestrel (Mirena) intrauterine modafinil 1 tabs qam and 1 tab at noon PO 2 times a day; pitolisant (Wakix) 17.8 mg PO DAILY sodium,calcium,mag,pot oxybate 0.5 gram/mL (Xywav) 4.5 grams (9 mL) PO BID 30 days Do you need a note to return to daycare/school/sports/work: No HPI HPI Comments History of Present Illness Details 37 y/o F with obstructive sleep apnea, n arcolepsy and cataplexy, major depressive disorder, vitamin-D deficiency, current tobacco user, allergic conjunctivitis, obesity Status post salpingectomy, , foot surgery, lumbar laminectomy with microdiscectomy 08/10/2018 Dr Esposito Family history: Mother from lung cancer, paternal grandfather with lung cancer and Crohn's, maternal grandmother with lung cancer, maternal uncle with lung cancer, maternal grandfather with renal cancer Health maintenance High-grade squamous antra epithelial lesion 2016; Pap 08/09/2019 negative cotest Tdap 11/08/2014 Specialists Sleep medicine Neurology Dermatology Here today with complaints of UTI symptoms. Started over the weekend. The patient has a history of frequent and recurrent UTIs. Last for UTI as E coli positive, pansensitive Last treated with Macrobid in March Exam Awake alert oriented Speaking in full sentences Mucous membranes moist UA dip positive see results below Plan Empirically treat with Macrobid. Refer to urology given the recurrence of UTIs. Send urine out for culture. Bladder hygiene education provided along with smoking cessation. This note is constructed using voice recognition software. While every effort has been made to ensure accuracy in tag machine operator, still errors may have been included Sometimes, these errors may affect the content or meaning of the given sentence . [facility] Medical History (Updated 08/06/24 @ 08:53 by Shana Hightower [facility]) Degenerative disc disease, lumbar Recurrent otitis media Narcolepsy and cataplexy Obstructive sleep apnea Depression Surgical History (Updated 11/18/23 @ 08:23 by Ivana Martinez [facility]) History of salpingectomy H/O section H/O foot surgery History of back surgery Family History (Updated 11/18/23 @ 08:33 by Ivana Martinez [facility]) Mother No problems noted. Father High cholesterol Maternal Grandmother Cancer Paternal Grandmother Cardiovascular disease Clotting disorder Maternal Grandfather No problems noted. Other Mental health disorder Substance use disorder Social History (Updated 11/18/23 @ 08:21 by Ivana Martinez [facility]) Household Members: Children 75 years or older and lives alone: No Alcohol intake: never Patient Tobacco Use Status: Current everyday Tobacco user Tobacco use type: Cigarette Cigarette Packs Per Day: 0.5 Cigarettes Per Day: 10 Years Smoked: 15 e-Cigarette/Vaping Use: Never Used service: No Current occupational status: employed Current occupation: [employer] Current occupational exposures/hazards: No Gender identity: Female Cognitive needs: No Hearing needs: No Vision needs: No Physical Exam Vital Signs: Last Vital Signs Pulse 95 08/06/24 08:23 Resp 12 08/06/24 08:23 BP 124/66 08/06/24 08:23 Pulse Ox 98 08/06/24 08:23 Oxygen Delivery Method Room Air 08/06/24 08:23 BMI result Body Mass Index 37.7 Results AMB Urinalysis, Automated UA Leukoctes 500 Tay/uL Last Edit by Ana Parmar MA on 08/06/24 08:50 UA Nitrite Positive Last Edit by Ana Parmar MA on 08/06/24 08:50 UA Urobilinogen 35 mg/dL Last Edit by Ana Parmar MA on 08/06/24 08:50 UA Protein 1.0 mg/dL Last Edit by Ana Parmar MA on 08/06/24 08:50 UA pH 8.0 Last Edit by Ana Parmar MA on 08/06/24 08:50 UA Blood 80 Vargas/uL Last Edit by Ana Parmar MA on 08/06/24 08:50 UA Specific Pioneer 1.010 Last Edit by Ana Parmar MA on 08/06/24 08:5 0 UA Ketone Positive Last Edit by Ana Parmar MA on 08/06/24 08:50 UA Bilirubin 17 mg/dL Last Edit by Ana Parmar MA on 08/06/24 08:50 UA Glucose 0 mg/dL Last Edit by Ana Parmar MA on 08/06/24 08:50 Results Reviewed Results Reviewed: RUN: 08/06/24 0849 PAGE 1 [facility] [address] [place] [id number] [place] Compounder: Kai Zayas M.D. Specimen Inquiry Name: Maria Teresa Nieto Age/Sex: 38/F : 1985 Unit#: [id number] Attend Dr: Kaila Rendon CNP Re04/02/24 Status: DEP REF Location: .LAB Disch: Specimen: [id number] Collected: 04/02/24-UNK Status: COMP Req#: [id number] Received: 04/02/24-1643 Source: [facility] Sp Desc: Clean Cat Subm Dr: Kaila Rendon CNP Ordered: Urine Culture Procedure Result Verified Urine Culture Final 04/04/24 Organism 1 Escherichia coli Quant > 100,000 cfu/mL E coli M.I.C. RX --------- --- Ampicillin <=2 S Cefazolin <=4 S Ceftriaxone <=0.25 S Gentamicin <=1 S Levofloxacin <=0.12 S Nitrofurantoin <=16 S Trimethoprim/Sulfamethoxazole <=20 S END OF REPORT Assessment & Plan Assessment & Plan (1) Recurrent UTI: Code(s): N39.0 - Urinary tract infection, site not specified (2) Tobacco user: Comment: not interested in quitting at this time; will do cold turkey when ready. education provided Code(s): Z72.0 - Tobacco use Plan . Orders: Orders AMB Urinalysis Automated Today Z13.9 - Encounter for screening, unspecified Urine Culture Today R30.0 - Dysuria Referrals Urology Referral N39.0 - Urinary tract infection, site not specified Medications: Refilled nitrofurantoin monohyd/m-cryst 100 mg (Macrobid) must administer with a meal/food 100 mg PO Q12H 7 days 14 caps 0RF N39.0 - Urinary tract infection, site not specified Coding Level of Care Code Est Pt Level 3 (71507) Diagnoses Recurrent UTI N39.0 Tobacco user Z72.0
[2024-08-06 08:23] VITALS: BP 124/66; PULSE 95; RESP 12; O2SAT 98; BMI 37.7
== END 2024-08-06 09:46 | disposition home or self-care (01) ==
LOC: HO.HMCWIW 08:21
PROVIDERS: PCP Nurse Practitioner Family; Visit Provider Nurse Practitioner Family
DX: N39.0 Urinary tract infection, site not specified (principal); Z72.0 Tobacco use; Z13.9 Encounter for screening, unspecified

== ENCOUNTER 2024-08-06 08:21 | Outpatient (REF) | payer OTHER, SELFPAY | END 2024-08-06 08:22 | disposition home or self-care (01) | LOC: HO.LAB 08:21 | PROVIDERS: PCP Nurse Practitioner Family; Visit Provider Nurse Practitioner Family | DX: R30.0 Dysuria (principal); N39.0 Urinary tract infection, site not specified; Z72.0 Tobacco use | CPT/HCPCS: 81003; 87086; 87088; 87186; 99212 ==

== ENCOUNTER 2024-08-09 08:45 | Outpatient (AMB) | payer OTHER, SELFPAY ==
--- NOTE | 2024-08-09 09:00 | MHC.PC.OV ---
Vital Signs 08/09/24 09:05 Height 5 ft 3 in Weight 216 lb 8 oz BMI 38.3 BP 104/50 L Blood Pressure Location Lt brachial Position Sitting Respiration 14 Pulse 85 Pulse Source Pulse Oximeter Temp 98.6 F Temp Source Oral Pulse Oximetry (%) 97 Oxygen Delivery Method Room Air Intake Visit Reasons: Left?Lower?quadrant?pain, uti/vaginal bleeding Intake Note: patient has UTI pt states she has been having lower abd pain radiating to her lower back since tuesday she is currently being treating for a uti she has also notice a significant amount of blood when urinating that started today. Allergies Sulfa (Sulfonamide Antibiotics) Allergy (Unknown, Verified 08/09/24 09:03) HIVES Tobacco use date assessed: 11/18/23 Dental Screening Dental Screen Date: 11/18/23 HPI Left?Lower?quadrant?pain HPI Details Patient?initially?states?that?she?is?having?vaginal?bleeding.??She?says?that?she?has?getting?treated?with?Macrobid?for?a?recurrent?UTI. She?notes?that?she?has?had?left?lower?quadrant?pain?since?Tuesday Denies?fevers?or?chills. Today?she?was?sitting?on?the?bowl?and?defecating?and?noted?significant?amounts?red?blood?in?the?bowl?which?she?presumed?was?vaginal?blood. On?further?discussion?she?is?uncertain?the?source?blood. [facility] Medical History (Updated 08/09/24 @ 09:31 by Kai Morrell MD) Degenerative disc disease, lumbar Recurrent otitis media Narcolepsy and cataplexy Obstructive sleep apnea Depression Surgical History (Updated 11/18/23 @ 08:23 by Ivana Martinez CMA) History of salpingectomy H/O section H/O foot surgery History of back surgery Family History (Updated 11/18/23 @ 08:33 by Ivana Martinez CMA) Mother No problems noted. Father High cholesterol Maternal Grandmother Cancer Paternal Grandmother Cardiovascular disease Clotting disorder Maternal Grandfather No problems noted. Other Mental health disorder Substance use disorder Social History (Updated 11/18/23 @ 08:21 by Ivana Martinez CMA) Household Members: Children Alcohol intake: never Patient Tobacco Use Status: Current everyday Tobacco user Tobacco use type: Cigarette Cigarette Packs Per Day: 0.5 Cigarettes Per Day: 10 Years Smoked: 15 e-Cigarette/Vaping Use: Never Used service: No Current occupational status: employed Current occupation: [employer] Current occupational exposures/hazards: No Gender identity: Female Cognitive needs: No Hearing needs: No Vision needs: No Questionnaire Thrive Questionnaire Date Thrive assessed: 06/04/24 ANNA-7 AMB Questionnaire ANNA-7 Date ANNA - 7 assessed: 11/18/23 Source: Developed by Drs. Gopal Ramirez, Tahira Escobar, Markos Bass and colleagues, with an educational criselda from [employer]. Review of Systems Const Details: Abd pain. No F/C. See HPI Physical exam (Primary Care) Vital Signs: Last Vital Signs Temp 98.6 F 08/09/24 09:05 Pulse 85 08/09/24 09:05 Resp 14 08/09/24 09:05 BP 104/50 L 08/09/24 09:05 Pulse Ox 97 08/09/24 09:05 Oxygen Delivery Method Room Air 08/09/24 09:05 BMI result Body Mass Index 38.3 Tobacco/Smoking Status: Tobacco use Status Tobacco use date assessed 11/18/23 08/09/24 09:11 Patient Tobacco Use Status Current everyday Tobacco 08/09/24 09:11 Tobacco use type Cigarette 08/09/24 09:11 e-Cigarette/Vaping Use Never Used 08/09/24 09:11 Thrive Assessment: Date of Thrive Assessment Date Thrive assessed 06/04/24 08/09/24 09:11 Const General: no acute distress and well developed Nutritional Appearance: well nourished Orientation/consciousness: patient oriented x3 HENMT Head: Yes normocephalic and Yes atraumatic Eyes General: appearance normal, both eyes and all related structures Pupils: Equal, round and reactive pupils present EOM: EOMs intact bilaterally Resp Effort & Inspection: normal respiratory effort Auscultation: clear to auscultation bilaterally Cardio Rate: regular rate Rhythm: regular rhythm Heart sounds: S1 normal heart sound present, S2 normal heart sound present, no gallops, no murmurs and no rubs GI Other: diffuse abd pain and significant pain at LLQ Back/Spine/Pelvis Other: No CVA TTP Neuro General: patient oriented x3 and gait normal Cranial nerves: Yes Equal, round and reactive pupils present Psych Affect: normal affect Coding Level of Care Code Est Pt Level 3 (03383) Diagnoses LLQ abdominal pain R10.32 Vaginal bleeding N93.9 Recurrent UTI N39.0 Assessment & Plan Assessment & Plan (1) LLQ abdominal pain: Code(s): R10.32 - Left lower quadrant pain Category: Medical Plan: On?further?discussion?and?exam?of?patient,?she?had?significant?amount?of?red?blood?in?the?bowl?after?passing?stool. Unclear?where?blood?is?coming?from?but?she?has?significant?left?lower?quadrant?tenderness?and?higher?than?would?be?expected?for?uterine?ovarian?discomfort. Tenderness?is?significant?and?consistent?with?diverticulitis May also have constipation and significant a stool burden causing pain but doesn't explain blood unless causing fissure or injured hemorrhoid. Checking?labs?before?she?goes?and?times?in?for?a?CT?scan?of?the?abdomen/pelvis. Checking?labs Sending?a?script?for?Augmentin Follow-up?later?today?or?tomorrow?patient?by?phone?or?in?person. 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 Will?send?urine?lab?again?though?her?urine?dip?today?shows?only?3+?blood?and?is?likely?contamination Orders: Orders AMB HCG Urine Test 08/09/24 N93.9 - Abnormal uterine and vaginal bleeding, unspecified Prolactin 08/09/24 N93.9 - Abnormal uterine and vaginal bleeding, unspecified Follicle Stimulating Hormone 08/09/24 N93.9 - Abnormal uterine and vaginal bleeding, unspecified Estradiol Ultra Sensitive 08/09/24 N93.9 - Abnormal uterine and vaginal bleeding, unspecified US pelvic and transvaginal 08/09/24 N93.9 - Abnormal uterine and vaginal bleeding, unspecified Urine Culture 08/09/24 N39.0 - Urinary tract infection, site not specified UA and rflx microscopic 08/09/24 N39.0 - Urinary tract infection, site not specified, Z00.00 - Encounter for general adult medical examination without abnormal findings Complete Blood Count Auto Diff 08/09/24 N39.0 - Urinary tract infection, site not specified, N93.9 - Abnormal uterine and vaginal bleeding, unspecified, Z00.00 - Encounter for general adult medical examination without abnormal findings Comprehensive Met. Panel 08/09/24 N93.9 - Abnormal uterine and vaginal bleeding, unspecified TSH reflex Free T4 08/09/24 N93.9 - Abnormal uterine and vaginal bleeding, unspecified, Z00.00 - Encounter for general adult medical examination without abnormal findings Medications: New amoxicillin-pot clavulanate 500-125 mg (Augmentin) 1 tab PO Q12H 10 days 20 tabs 0RF polyethylene glycol 3350 (Miralax) 17 grams PO DAILY 14 days 14 ea 0RF
[2024-08-09 09:05] VITALS: BP 104/50; PULSE 85; RESP 14; TEMP 37; O2SAT 97; BMI 38.3
== END 2024-08-09 10:01 | disposition home or self-care (01) ==
LOC: HO.HMCWIW 08:45
PROVIDERS: PCP Nurse Practitioner Family; Visit Provider Family Medicine
DX: R10.32 Left lower quadrant pain (principal); N93.9 Abnormal uterine and vaginal bleeding, unspecified; N39.0 Urinary tract infection, site not specified

== ENCOUNTER 2024-08-09 08:45 | Outpatient (REF) | payer OTHER, SELFPAY ==
[2024-08-09 11:26] LABS: Appearance Urine Cloudy; Color Urine Dark Yellow; Glucose Urine UA Negative (Negative); Leukocyte Esterase Urine Small (1+) (Negative); Nitrite Urine Negative (Negative); PH 7.5 (5.0-9.0); UMIC TRIGGER UA YES; Urine Blood Large (3+) (Negative); Urine Ketones Negative (Negative); Urine Protein 30 (1+) mg/dL (Neg-Trace)
[2024-08-09 11:39] LABS: Bacteria Urine Trace (None Seen); Hyaline Casts Urine 0-2 /LPF (0-2); RBC Urine 0-2 /HPF (0-2); WBC Urine 0-5 /HPF (0-5)
== END 2024-08-09 08:46 | disposition home or self-care (01) ==
LOC: HO.LAB 08:45
PROVIDERS: PCP Nurse Practitioner Family; Visit Provider Family Medicine
DX: N93.9 Abnormal uterine and vaginal bleeding, unspecified (principal)
CPT/HCPCS: 36415; 80053; 81001; 81025; 82670; 83001; 84146; 84443; 85025; 87086; 99212

== ENCOUNTER 2024-08-09 10:08 | Outpatient (REF) | payer OTHER, SELFPAY ==
[2024-08-09 11:12] LABS: MANUAL DIFF FLAG NO
[2024-08-09 11:25] LABS: Basophils Absolute Auto 0.1 X10*3/uL (0.0-0.2); Basophils Percent Auto 0.8 % (0-2); Eosinophils Absolute Auto 0.1 X10*3/uL (0.0-0.4); Hematocrit 44.3 % (37.0-47.0); Hemoglobin 14.7 g/dl (12.0-16.0); Imm Gran Abs Auto 0.06 X10*3/uL (0.00-0.03); Imm Gran Pct Auto 0.6 % (0.0-0.4); Lymphocytes Absolute Auto 1.7 X10*3/uL (1.2-4.9); Lymphocytes Percent Auto 16.1 % (20-40); Mean Corpuscular HGB Conc 33.2 g/dl (31.0-35.0); Mean Corpuscular Hemoglobin 31.3 pg (27.0-33.0); Mean Corpuscular Volume 94.5 fL (80.0-98.0); Mean Platelet Volume 10.3 fL (9.4-12.3); Monocytes Absolute Auto 0.9 X10*3/uL (0.1-1.2); Monocytes Percent Auto 8.3 % (2-11); Neutrophils Absolute Auto 7.5 x10*3/uL (2.0-8.3); Neutrophils Percent Auto 73.2 % (45-73); Platelet Count 280 X10*3/uL (160-400); Red Blood Count 4.69 X10*6/uL (4.20-5.50); Red Cell Distribution Width 13.4 % (11.0-16.0); White Blood Count 10.3 X10*3/uL (4.8-10.8)
[2024-08-09 12:26] LABS: Alanine Aminotransferase 30 U/L (0-31); Albumin Level 4.2 g/dL (3.5-5.0); Alkaline Phosphatase 50 U/L (39-117); Anion Gap 13 (12-20); Aspartate Amino Transferase 26 U/L (5-31); Bilirubin Total 0.3 mg/dL (0.0-1.0); Blood Urea Nitrogen 8 mg/dL (9-16); Calcium 9.3 mg/dL (8.4-10.2); Carbon Dioxide 25 mmol/L (22-29); Chloride 108 mmol/L (96-108); Estimated Glomerular Filt Rate > 60; Glucose Random 86 mg/dL (60-115); Potassium 4.2 mmol/L (3.3-5.1); Sodium 142 mmol/L (135-145); Total Protein 7.7 g/dL (6.5-8.0)
[2024-08-09 12:48] LABS: TSH reflex Free T4 2.61 uIU/mL (0.32-4.0)
[2024-08-10 18:49] LABS: Follicle Stimulating Hormone 5.1 mIU/mL; Prolactin 5.2 ng/mL
[2024-08-20 00:49] LABS: Estradiol Ultra Sensitive 66 pg/mL
== END 2024-08-09 10:09 | disposition home or self-care (01) ==
LOC: HO.WFDLDS 10:08
PROVIDERS: Visit Provider Family Medicine
DX: Z00.00 Encounter for general adult medical examination without abnormal findings (principal); N93.9 Abnormal uterine and vaginal bleeding, unspecified; N39.0 Urinary tract infection, site not specified
CPT/HCPCS: 36415; 80053; 81001; 81025; 82670; 83001; 84146; 84443; 85025; 87086; 99212

== ENCOUNTER 2024-08-09 12:29 | Outpatient (REF) | payer OTHER, SELFPAY ==
--- NOTE | ~2024-08-09 | US_ITS ---
EXAMINATION: US PELVIS CLINICAL INFORMATION: Abnormal uterus and vaginal bleed, unspecified. COMPARISON: No priors. Correlated to CT abdomen and pelvis dated August 04, 2020. TECHNIQUE: Ultrasound of the pelvis is performed using both transabdominal and transvaginal transducers along with Doppler. Transvaginal imaging is performed due to inadequate visualization transabdominally. FINDINGS: Uterus: The uterus is anteverted and measures 8 x 5 x 5 cm. Volume is 100 cc. Unable to evaluate the endometrial stripe due to the presence of an intrauterine contraceptive device in satisfactory position. The endocervix is closed and measures approximately 3 cm.. The uterus is smooth in contour and has normal myometrial echogenicity. No visible fibroid. Adnexa: Both ovaries are visualized. There is normal color flow to the adnexa. There is no ovarian torsion. There is no pelvic ascites or fluid collection. Scattered follicles throughout the ovaries with a 1.1 cm isoechoic/hyperechoic structure in the right ovary. Right ovary measures 4 x 2 x 3 cm. Volume is 14 cc. Left ovary measures 3 x 2 x 2 cm. Volume is 5 cc. US/US pelvic and transvaginal IMPRESSION: Intrauterine contraceptive device in satisfactory position. No gross uterine fibroid. No ovarian torsion. 1.1 cm hyperechoic structure right ovary, nonspecific. Electronically signed by: Arjun Rowan MD 08/09/2024 01:08 PM AB[facility]
== END 2024-08-09 12:30 | disposition home or self-care (01) ==
LOC: HO.HMGCX 12:29
PROVIDERS: PCP Nurse Practitioner Family; Visit Provider Family Medicine
DX: N93.9 Abnormal uterine and vaginal bleeding, unspecified (principal)
CPT/HCPCS: 76830; 76856

== ENCOUNTER → 2024-08-09 12:30 | Outpatient (BNV) | payer OTHER, SELFPAY | PROVIDERS: PCP Nurse Practitioner Family; Visit Provider Radiology Diagnostic Radiology | DX: N83.201 Unspecified ovarian cyst, right side (principal); Z97.5 Presence of (intrauterine) contraceptive device | CPT/HCPCS: 76830; 76856 ==

== ENCOUNTER 2024-08-10 13:32 | Outpatient (REF) | payer OTHER, SELFPAY ==
--- NOTE | ~2024-08-10 | CT_ITS ---
EXAMINATION: CT ABDOMEN PELVIS WITHOUT IV CONTRAST HISTORY: R10.32 - Left lower quadrant pain COMPARISON: Comparison is made with the prior examination dated 08/04/2020. TECHNIQUE: CT scan of the abdomen and pelvis was performed without contrast using standard departmental protocol. Coronal and sagittal reformatted images were generated and reviewed. Intravenous contrast was not utilized due to lack of IV access. Oral contrast material was not administered at the request of the referring physician. This CT exam was performed with one or more of the following dose reduction techniques: automated exposure control, adjustment of the mA and/or kV according to patient size, use of iterative reconstruction technique. DLP: 639 mGy-cm FINDINGS: LOWER CHEST: There is dependent atelectasis at both lung bases. There is no pleural effusion. CARDIOVASCULATURE: The heart is normal in size. There is no pericardial effusion. LIVER: The liver is normal in size and contour. The liver has an unremarkable unenhanced appearance. GALLBLADDER / BILE DUCTS: The gallbladder is unremarkable. There is no intra or extrahepatic biliary ductal dilatation. SPLEEN: The spleen is normal in size and has an unremarkable unenhanced appearance. PANCREAS: The pancreas has an unremarkable unenhanced appearance. ADRENAL GLANDS: Unremarkable. KIDNEYS/RETROPERITONEUM: No renal calculi are identified. There is no hydronephrosis. LYMPH NODES: No retroperitoneal lymphadenopathy is identified in the abdomen or pelvis. VASCULATURE: The abdominal aorta is normal in caliber. MESENTERY/PERITONEUM: No free fluid. No masses. There is no free intraperitoneal gas. STOMACH: The stomach is collapsed, limiting evaluation. SMALL BOWEL: The small bowel is normal in caliber. COLON: There is a large amount of stool throughout the colon. APPENDIX: Normal. URINARY BLADDER/PELVIC ORGANS: The urinary bladder is collapsed, limiting evaluation. IUD is noted in the endometrial cavity of the uterus. BONES / SOFT TISSUES: There is degenerative disc disease at the L5-S1 level. CT/CT abdomen pelvis wo IV con IMPRESSION: Large amount of stool throughout the colon. Otherwise unremarkable unenhanced CT of the abdomen and pelvis. Electronically signed by: Gopal Carlos MD 08/10/2024 03:08 PM [facility]
== END 2024-08-10 13:33 | disposition home or self-care (01) ==
LOC: HO.CT 13:32
PROVIDERS: PCP Nurse Practitioner Family; Visit Provider Family Medicine
DX: R10.32 Left lower quadrant pain (principal)
CPT/HCPCS: 74176

== ENCOUNTER → 2024-08-10 13:34 | Outpatient (BNV) | payer OTHER, SELFPAY | PROVIDERS: PCP Nurse Practitioner Family; Visit Provider Radiology Diagnostic Radiology | DX: R10.32 Left lower quadrant pain (principal) | CPT/HCPCS: 74176 ==

== ENCOUNTER 2024-08-14 08:21 | Outpatient (AMB) | payer OTHER, SELFPAY ==
--- NOTE | 2024-08-14 08:21 | A.OFFVIS_ITS ---
Intake Visit Reasons: Follow Up Intake Note: patient presents for follow up Allergies Sulfa (Sulfonamide Antibiotics) Allergy (Unknown, Verified 08/14/24 08:21) HIVES HPI Comments Details: 38 y/o female patient with narcolepsy and RADHA calls for follow up. Pt has narcolepsy with cataplexy and RADHA. She takes Xywav 4.5 gm at 8pm and second dose after 3hrs Pt wakes up 5 am, and takes modafinil 200 mg when she wakes up and takes second dose at 12noon She can't get out of bed until modafinil kicks in. . She is compliant with CPAP. The CPAP compliance and therapy response reviewed. She is on APAP [id number]. The usage days 100% and the average usage hours 8 hrs 33min. The max pressure was 11.8 and the AHI was 0.2/hr. she ran out of [employer] for 3 weeks in Jun 2024 due to shipment issues and recently restarted. Her cataplexy episodes were rare but recently increased in frequency and she thinks it might be related to not being on wakix. she takes 1-2 naps on weekends and 1 nap on weekday [facility] Medical History Degenerative disc disease, lumbar Recurrent otitis media Narcolepsy and cataplexy Obstructive sleep apnea Depression Surgical History History of salpingectomy H/O section H/O foot surgery History of back surgery Family History Mother No problems noted. Father High cholesterol Maternal Grandmother Cancer Paternal Grandmother Cardiovascular disease Clotting disorder Maternal Grandfather No problems noted. Other Mental health disorder Substance use disorder Social History Household Members: Children 75 years or older and lives alone: No Alcohol intake: never Patient Tobacco Use Status: Current everyday Tobacco user Tobacco use type: Cigarette Cigarette Packs Per Day: 0.5 Cigarettes Per Day: 10 Years Smoked: 15 e-Cigarette/Vaping Use: Never Used service: No Current occupational status: employed Current occupation: [employer] Current occupational exposures/hazards: No Gender identity: Female Cognitive needs: No Hearing needs: No Vision needs: No Physical Exam Const General: cooperative Resp Effort & Inspection: able to speak in complete sentences Telehealth Telehealth Telehealth Platform: Telephone Location of provider rendering services: practice address Location of patient: address on file Patient Identification confirmed using: Name, : Yes Telehealth method: voice only Patient verbally consented to treatment: Yes Patient verbally consented to billing insurance company: Yes Patient informed of any privacy concerns related to visit: Yes Minutes spent on Phone/Video with Pt.: 22 Assessment & Plan Assessment & Plan (1) Narcolepsy and cataplexy: Code(s): G47.411 - Narcolepsy with cataplexy Category: Medical (2) Obstructive sleep apnea: Code(s): G47.33 - Obstructive sleep apnea (adult) (pediatric) Category: Medical Plan: Plan Continue CPAP 5-20 and compliance stressed wakix 17.8mg qam, modafanil 200mg qam and qnoon Continue xywav 4.5g at bed time and 2 nd dose 2.5-4hrs later Coding Level of Care Code Tele Est Pt Level 4 (59884) Diagnoses Narcolepsy and cataplexy G47.411 Obstructive sleep apnea G47.33
== END 2024-08-14 12:54 | disposition home or self-care (01) ==
PROVIDERS: PCP Nurse Practitioner Family; Visit Provider Psychiatry & Neurology Neurology
DX: G47.411 Narcolepsy with cataplexy (principal); G47.33 Obstructive sleep apnea (adult) (pediatric)
CPT/HCPCS: 99214

== ENCOUNTER 2024-09-26 09:25 | Outpatient (AMB) | payer OTHER, SELFPAY ==
--- NOTE | 2024-09-26 09:39 | A.OFFPC_ITS ---
Vital Signs 09/26/24 09:40 Height 5 ft 3 in Weight 214 lb BMI 37.9 BP 98/66 Blood Pressure Location Rt brachial Position Sitting Respiration 12 Pulse 69 Pulse Source Pulse Oximeter Temp 97.1 F Temp Source Oral Pulse Oximetry (%) 99 Oxygen Delivery Method Room Air Intake Visit Reasons: PFMLA Intake Note: follow up on la [employer] Required: No Allergies Sulfa (Sulfonamide Antibiotics) Allergy (Unknown, Verified 09/26/24 10:16) HIVES Medication List - Last Reconciled 09/26/24 by Shana Hightower, BACTERIOLOGY RESEARCH ASSISTANT- atorvastatin 40 mg PO BEDTIME cholecalciferol (vitamin D3) 125 mcg PO DAILY cyanocobalamin (vitamin B-12) 1,000 mcg PO DAILY fluticasone propionate 50 mcg/actuation (Flonase Allergy Relief) 1 spray intranasal Q12H 30 days ibuprofen 800 mg PO Q8H PRN levonorgestrel (Mirena) intrauterine modafinil 1 tabs qam and 1 tab at noon PO 2 times a day; pitolisant (Wakix) 17.8 mg PO DAILY polyethylene glycol 3350 (Miralax) 17 grams PO DAILY 14 days sodium,calcium,mag,pot oxybate 0.5 gram/mL (Xywav) 4.5 grams (9 mL) PO BID 30 days Tobacco use date assessed: 09/26/24 Dental Screening Dental Screen Date: 09/26/24 Did you have a dental visit in the last 12 months?: Yes Did you have a dental problem in the last 6 months where you did not have access to dental care?: No Was dental information given to patient?: Patient has dentist HPI HPI Comments History of Present Illness Details 38 y/o F with obstructive sleep apnea, n arcolepsy and cataplexy, major depressive disorder, vitamin-D deficiency, current tobacco user, allergic conjunctivitis, obesity Status post salpingectomy, , foot surgery, lumbar laminectomy with microdiscectomy 08/10/2018 Dr Esposito - The patient is a 38 year old female pr esenting with the need to recertify [facility] paperwork for narcolepsy with cataplexy. - Narcolepsy is under control with infre quent episodes that impair functioning for about two weeks every few months. - Recent difficulties arose due to a lap se in medication provisioning, causing an increase in cataplexy symptoms. - The patient sees a neurologist approxi mately every six months. - The patient is a smoker but intends to decrease usage. Social History - The patient is employed and commutes t o work - Currently smokes less than half a pack per day with intentions to decrease and eventually cease smoking. - The patient has previously successfull y quit smoking and described a personal motivation to do so again. Review of Systems - Neurological: Reports stability of karlee colepsy, with infrequent exacerbations. - Musculoskeletal: Reports episodic rachel plexy affecting the arms. - Mental Health: Discusses subjective st ress management and coping strategies related to chronic condition management. Physical Exam General: Well developed, well nourished, in no acute distress. Appears stated age. Head: Normocephalic, atraumatic. Eyes: Pupils are equal, round and reactive to light and accommodation. Conjunctivae are clear. Vision grossly normal. Lungs: Clear to auscultation bilaterally. No rales, rhonchi or wheeze noted. Good air flow in all al. Heart: Regular rate and rhythm. No murmurs, click, rubs or gallops are noted. Neurologic: Gait and station normal. Cranial Nerves 2-12 intact. Motor strength grossly symmetrical and intact. No sensory loss. Balance normal. Psych: Normal eye contact, affect and mood appropriate, and normal interactions. Patient is alert and appropriate to context. Discussion Notes During the consultation, I discussed the patient's current management plan for narcolepsy with cataplexy and the impact of the recent medication lapse on symptom severity. We reinforced the purpose of the medication and scheduled neurologist follow-up for optimal control. The individual expressed the desirability of reducing cigarette use, acknowledging financial and health motivators, and reflected on past successful cessation experiences. No new medication adjustments were discussed. Assessment and Plan 1. Narcolepsy with Cataplexy: Continue c urrent management plan with regular neurologic evaluations to ensure medication adherence and symptom monitoring. Recent exacerbation due to medication lapse should be addressed in future consultations. 2. Smoking (Tobacco Use Disorder): Encou rage reduction with a focus on achieving smoking cessation, harnessing motivations highlighted by the patient. Prior successful cessation efforts should be emulated. Intermittent leave 10/01/24-04/05/25 5 times per week, lasting about 1 hour per episode form completed and returned to patient at time of visit Patient Instructions - Continue regular medication as prescri bed to manage narcolepsy symptoms. - Attend scheduled neurology appointment s to monitor and adjust treatment as needed. - Continue to make efforts towards smoki ng cessation, utilizing past successful attempts as a guide. RTO as scheduled Consent Patient was informed and verbally consented to the use of an ambient scribe for clinic note documentation during this visit. [facility] Medical History Degenerative disc disease, lumbar Recurrent otitis media Narcolepsy and cataplexy Obstructive sleep apnea Depression Surgical History History of salpingectomy H/O section H/O foot surgery History of back surgery Family History Mother No problems noted. Father High cholesterol Maternal Grandmother Cancer Paternal Grandmother Cardiovascular disease Clotting disorder Maternal Grandfather No problems noted. Other Mental health disorder Substance use disorder Social History Household Members: Children 75 years or older and lives alone: No Alcohol intake: never Patient Tobacco Use Status: Current everyday Tobacco user Tobacco use type: Cigarette Cigarette Packs Per Day: 0.5 Cigarettes Per Day: 10 Years Smoked: 15 Packs Per Year: 8 Packs per year/per ci.50 e-Cigarette/Vaping Use: Never Used service: No Current occupational status: employed Current occupation: [employer] Current occupational exposures/hazards: No Gender identity: Female Cognitive needs: No Hearing needs: No Vision needs: No Questionnaire PHQ-9 Over the last 2 weeks, how often have you been bothered by any of the following problems? 34402 - PHQ-9 Billing: Patient declined-do not bill Source: Developed by Drs. Gopal Ramirez, Tahira Escobar, Markos Bass and colleagues, with an educational criselda from [employer]. Thrive Questionnaire Date Thrive assessed: 09/26/24 I am a: Patient What is your living situation today?: I have a steady place to live Within the past 12 months, did the food you bought not last and you didn't have the money to get more?: Never true Within the past 12 months, did you worry whether your food would run out before you got money to buy more?: Never true Do you have trouble paying for medicines?: No Do you have trouble getting transportation to medical appointments?: No Do you have trouble paying your heating and electricity bill?: No Do you have trouble taking care of your child, family member or friend?: No Do you have trouble with day-to-day activities such as bathing, preparing meals, shopping, managing finances, etc.?: No Are you currently unemployed and looking for a job?: No Are you interested in more education?: No THRIVE Score: 0 ANNA-7 AMB Questionnaire ANNA-7 Date ANNA - 7 assessed: 11/18/23 Source: Developed by Drs. Gopal Ramirez, Tahira Escobar, Markos Bass and colleagues, with an educational criselda from [employer]. Physical exam (Primary Care) Vital Signs: Last Vital Signs Temp 97.1 F 09/26/24 09:40 Pulse 69 09/26/24 09:40 Resp 12 09/26/24 09:40 BP 98/66 09/26/24 09:40 Pulse Ox 99 09/26/24 09:40 Oxygen Delivery Method Room Air 09/26/24 09:40 BMI result Body Mass Index 37.9 BMI Assessment/Plan discussion: High BMI High, discussed plan: lifestyle Tobacco/Smoking Status: Tobacco use Status Tobacco use date assessed 09/26/24 09/26/24 09:42 Patient Tobacco Use Status Current everyday Tobacco 09/26/24 09:42 Tobacco use type Cigarette 09/26/24 09:42 e-Cigarette/Vaping Use Never Used 09/26/24 09:42 Are you ready to quit: No Tobacco cessation counseling provided: Yes Items discussed: Nicotine replacement, QuitWorks and Other Relapse Prevention: discussed the importance of a supportive environment, discussed extending NRT, discussed negative mood or depression after quitting, weight gain after smoking is common and discussed dietary, exercise and/or lifestyle changes Number of minutes spent counselin CPT code: 35098 - 4-10 Minutes Thrive Assessment: Date of Thrive Assessment Date Thrive assessed 09/26/24 09/26/24 09:42 Coding Level of Care Code Est Pt Level 4 (56938) Complex EM visit Add On G2211 Diagnoses Narcolepsy and cataplexy G47.411 Obstructive sleep apnea G47.33 Tobacco user Z72.0 Class 2 severe obesity due to excess calories with serious comorbidity and body mass index (BMI) of 37.0 to 37.9 in adult E66.01; Z68.37 Obesity type: due to excess calories Additional Codes Vital Signs *Quality* - CPT code: 39815 - 4-10 Minutes ([id number]) Assessment & Plan Assessment & Plan (1) Narcolepsy and cataplexy: Code(s): G47.411 - Narcolepsy with cataplexy Category: Medical (2) Obstructive sleep apnea: Code(s): G47.33 - Obstructive sleep apnea (adult) (pediatric) Category: Medical (3) Tobacco user: Comment: not interested in quitting at this time; will do cold turkey when ready. education provided Code(s): Z72.0 - Tobacco use Category: Social Hx (4) Class 2 severe obesity with serious comorbidity and body mass index (BMI) of 37.0 to 37.9 in adult: Comment: lifestyle mods Code(s): E66.01 - Morbid (severe) obesity due to excess calories; Z68.37 - Body mass index [BMI] 37.0-37.9, adult Category: Medical Qualifiers: Obesity type: due to excess calories Qualified Code(s): E66.01 - Morbid (severe) obesity due to excess calories; Z68.37 - Body mass index [BMI] 37.0- 37.9, adult Plan . Patient Instructions: Smoking Cessation How to Quit There are a lot of ways to quit smoking and many resources to help you. Family members, friends, and co-workers may be supportive or encouraging, but to be successful the desire and commitment to quit must be your own. Most people who have been able to successfully quit smoking made at least one unsuccessful attempt in the past. Try not to view past attempts to quit as failures, but rather as learning experiences. Stopping smoking or using smokeless tobacco is difficult, but anyone can do it. Know the symptoms to expect when you stop. Common symptoms include: ? An intense craving for nicotine ? Anxiety, tension, restlessness, frustration, or impatience ? Difficulty concentrating ? Drowsiness or trouble sleeping, as well as bad dreams and nightmares ? Drowsiness and trouble sleeping ? Headaches ? Increased appetite and weight gain ? Irritability or depression How severe your symptoms are depends on how long you smoked and how many cigarettes you smoked each day. Feel ready to quit? ? First and foremost, set a quit date and quit completely on that day. Before your quit date, you may begin reducing your cigarette use. But remember, there is no safe level of cigarette smoking. ? List the reasons why you want to quit. Include both short- and long-term benefits. ? Identify the times you are most likely to smoke. For example, do you tend to smoke when feeling stressed or down? When out at night with friends? While drinking coffee or alcohol? When bored? While driving? Right after a meal or sex? During a work break? While watching TV or playing cards? When you are with other smokers? ? Let all of your friends, family, and co-workers know of your plan to stop smoking and your quit date. Just being aware that they know what you're going through can be helpful, especially when you are grumpy. ? Get rid of all your cigarettes just before the quit date, and clean out anything that smells like smoke, such as clothes and furniture. Make a plan about what you will do instead of smoking at those times when you are most likely to smoke. ? Be as specific as possible. For example, drink tea instead of coffee -- tea may not trigger the desire for a cigarette. Or, take a walk when you feel stressed. ? Remove ashtrays and cigarettes from the car. Place pretzels or hard candies there instead. Pretend-smoke with a straw. ? Find activities that focus your hands and mind but are not taxing or fattening. Computer games, solitaire, knitting, sewing, and crossword puzzles may help. ? If you normally smoke after eating, find other ways to end a meal. Play a tape or CD, eat a piece of fruit, get up and make a phone call, or take a walk (a good distraction that also james calories). Make other changes in your lifestyle. ? Change your daily schedule and habits. Eat at different times or eat several small meals instead of three large ones. Sit in a different chair or even a different room. ? Satisfy your oral habits by eating celery or other low-calorie snack, chewing sugarless gum, or sucking on a cinnamon stick. ? Go to public places and restaurants where smoking is prohibited or restricted. ? Eat regular meals and don't eat too much candy or sweet things. ? Get more exercise. Take walks or ride a bike. Exercise helps relieve the urge to smoke. Set short-term quitting goals and reward yourself when you meet them. ? Every day, put the money you normally spend on cigarettes in a jar. Then buy something pleasurable after a period of time. ? Try not to think about all the days ahead you will need to avoid smoking. Take it one day at a time. ? Even one puff or one cigarette will make your desire for more cigarettes even stronger. However, it is normal to make mistakes. So even if you have one cigarette, you don't need to take the next one. Other tips to help you quit smoking and stick to it: ? Enroll in a smoking cessation program (hospitals, health departments, community centers, and work sites often offer programs). Learn about self-hypnosis or other techniques. ? Ask your health care provider about prescription medications that are safe and appropriate for you. ? Find out about nicotine patches, gum, and sprays. The [place] [employer]'s web site -- www.cancer.org -- is an excellent resource for smokers who are trying to quit, and the [employer] [place] [employer] can help some smokers kick the habit. Above all, don't get discouraged if you aren't able to quit smoking the first time. Nicotine addiction is a hard habit to break. Try something different next time. Develop new strategies, and try again. Many people take several attempts to finally kick the habit.
[2024-09-26 09:40] VITALS: BP 98/66; PULSE 69; RESP 12; TEMP 36.2; O2SAT 99; BMI 37.9
--- OUTSIDE RECORDS SUMMARY | 2024-09-26 10:34 | XMS_ITS | Clinical Summary ---
Author Organization [employer] [facility] Address [address] [place] [address] [address] [place] [address] Care Team Providers Care Process Engineering Technician Name Role Phone Unavailable Primary Care Provider Unavailabl e Allergies Active Allergy Reactions Criticality Noted Date Comments Sulfa Antibiotics Hives 12/13/2013 Sulfadiazine 05/09/2023 Medications modafinil (Provigil) 200 MG tablet TAKE ONE TABLET BY MOUTH EVERY MORNING AND AT NOON (TWICE A DAY) Active Wakix 17.8 MG tablet Take 17.8 mg by mouth. 2 Active Levonorgestrel (Mirena, 52 MG,) 20 MCG/DAY intrauterine device 52 mg. 9 Active Xywav 500 MG/ML solution 4 Active atorvastatin (Lipitor) 40 MG tablet TAKE 1 TABLET ORALLY AT BEDTIME 4 Active Encounters Date Type Department Care Team Description 07/06/2024 Telephone [facility] [address] [place] [address] El Anna DMD active request from Last 3 Months Social History Tobacco Use Types Packs/Day Years Used Date Smoking Tobacco: Every Day Cigarettes Smokeless Tobacco: Never Tobacco Cessation:Ready to Q uit: Not Asked; Counseling Given: Not Answered Comments Unknown Sex and Gender Information Value Date Recorded Sex Assigned at Female 05/24/2022 10:26 AM EDT Legal Sex Female 10:26 AM EDT Gender Identity Female 05/24/2022 10:26 AM EDT Sexual Orientation Straight 05/24/2022 10 :26 AM EDT Last Filed Vital Signs Vital Sign Reading Time Taken Comments Blood Pressure 110/70 03/13/2024 11:19 AM EDT Pulse 95 03/13/2024 11:19 AM EDT Temperature - - Respiratory Rate - - Oxygen Saturation - - Inhaled Oxygen Concentration - - Weight - - Height - - Body Mass Index - - Plan of Treatment Health Maintenance Due Date Last Done Comments Depression Screening 1986 HIV Screening 1986 Lipid Panel 1986 SDOH Screening 1986 Alcohol/Substance Use Screening 1998 Hepatitis A Vaccines (2 of 2 - 2-dose series) 05/02/1999 10/31/1998, 07/04/1998, 05/16/1998 Family Planning (PISQ) 2001 Hepatitis C Screening 2004 Hepatitis B Vaccines (1 of 3 - 19+ 3-dose series) 2005 Pap Smear 12/28/2007 Cervical Cancer Screening 2016 HPV/Cotest 2016 Dental Oral Exam 06/08/2019 12/05/2018, 12/13/2013 Pneumococcal Vaccine: Pediatrics (0 to 5 Years) and At-Risk Patients (6 to 49) Years) (2 of 2 - PCV) 05/29/2021 05/29/2020 COVID-19 Vaccine ( - 2023- season) 2024 06/02/2021, 11/03/2020, 10/12/2020 Dental X-Ray: Full Mouth 04/02/2024 021, 12/05/2018, 12/13/2013 Dental Prophylaxis 09/14/2024 03/13/2024, 1 08/12/2018, 12/05/2018 DTaP/Tdap/Td Vaccines (7 - Td or Tdap) 11/08/2024 11/08/2014, 05/07/1994, 09/12/1991, Additional history exists Dental X-Ray: Bitewings 03/14/2025 03/13/20 24, 02/06/2021, 12/05/2018, Additional history exists Tobacco Screening 06/25/2025 06/25/2024 Zoster Vaccines (1 of 2) 2036 RSV Patients and Patients Aged 60 years or older (1 - 1-dose 75+ series) 2061 IPV Vaccines Completed 09/12/1991, 0603/1989, 04/28/1987, Additional history exists Influenza Vaccine Completed 05/22/2024, , 06/07/2022, Additional history exists HIB Vaccines Aged Out No longer eligi ble based on patient's age to complete this topic HPV Vaccines Aged Out No longer eligi ble based on patient's age to complete this topic Meningococcal Vaccine Aged Out No [place] eligible based on patient's age to complete this topic RSV under 20 months Aged Out No longe r eligible based on patient's age to complete this topic Rotavirus Vaccines Aged Out No longer eligible based on patient's age to complete this topic Procedures Procedure Name Priority Date/Time Associated Diagnosis Comments PROPHYLAXIS - ADULT Routine 03/13/2024 1 1:00 AM EDT BITEWINGS - 4 RADIOGRAPHIC IMAGES Routine 03/13/2024 11:00 AM EDT PANORAMIC RADIOGRAPHIC IMAGE Routine 04/01/2021 12:00 AM EDT PERIODIC ORAL EVALUATION - ESTABLISHED PATIENT Routine 12/05/2018 12:00 AM EDT from Last 3 Months or Most Recently Relevant to Health Maintenance Insurance DENTAL - HSN FULL (MEDICAID)
--- OUTSIDE RECORDS SUMMARY | 2024-09-26 10:34 | XMS_ITS | Encounter Summary ---
Author Organization [employer] [facility] Address [address] [place] [address] 7 [place] [address] Care Team Providers Care Center Medical And Lab Director Name Role Phone Unavailable Primary Care Provider Unavailabl e Reason for Visit * Reason Onset Date Comments active request 07/06/2024 Encounter Details Date Type Department Care Team ([facility] st Contact Info) Description 07/06/2024 Telephone [facility] [address] [place] [address] El Anna DMD [address] [place], [place] [id number] active request Social History Tobacco Use Types Packs/Day Years Used Date Smoking Tobacco: Every Day Cigarettes Smokeless Tobacco: Never Comments Unknown Sex and Gender Information Value Date Recorded Sex Assigned at Female 05/24/2022 10:26 AM EDT Legal Sex Female 10:26 AM EDT Gender Identity Female 05/24/2022 10:26 AM EDT Sexual Orientation Straight 05/24/2022 10 :26 AM EDT documented as of this encounter Miscellaneous Notes * Telephone Encounter - El Anna DMD - 07/06/2024 9:13 AM EST All set * Telephone Encounter - Deidra Whipple - 07/06/2024 8:31 AM EST Message for Dr. Anna Patient called in stating that she is supposed to get a rct in [facility] and that she would get a call because there is a waiting list. There is no active request and provider is only in office 1x per week. Nicko is going to contact office directly to verify if an active request can be done for patient and see if they are able to get an consult appt scheduled if there is availability. There is a wait list however for RCT patient in [facility]. documented in this encounter Plan of Treatment Scheduled Orders Name Type Priority Associated Diagnoses Orde r Schedule 4 4 CROWN PREP Dental Routine 1 Occurren patricia starting 07/06/2024 7 7 CROWN PREP Dental Routine 1 Occurren patricia starting 07/06/2024 documented as of this encounter Visit Diagnoses Not on filedocumented in this encounter
--- OUTSIDE RECORDS SUMMARY | 2024-09-26 10:34 | XMS_ITS | Encounter Summary ---
Author Organization [employer] [facility] Address [address] [place] [address] [address] [place] [address] Care Team Providers Care Newsstand Vendor Name Role Phone Unavailable Primary Care Provider Unavailabl e Encounter Details Date Type Department Care Team (Latest Contact Info) Description 12/05/[address] [facility] Dental, Provider, DDS Social History Tobacco Use Types Packs/Day Years Used Date Smoking Tobacco: Never Assessed Comments Unknown Sex and Gender Information Value Date Recorded Sex Assigned at Female 05/24/2022 10:26 AM EDT Legal Sex Female 10:26 AM EDT Gender Identity Female 05/24/2022 10:26 AM EDT Sexual Orientation Straight 05/24/2022 10 :26 AM EDT documented as of this encounter Plan of Treatment Not on file documented as of this encounter Visit Diagnoses Not on filedocumented in this encounter
--- OUTSIDE RECORDS SUMMARY | 2024-09-26 10:34 | XMS_ITS | Clinical Summary ---
Author Organization [facility] Address [address] [place] [address] Care Team Providers Care Parking Lot Attendant Name Role Phone Codey Gallo MD Primary Care Provider Allergies Active Allergy Reactions Criticality Noted Date Comments Sulfa (Sulfonamide Antibiotics) Medium 02/11/2011 Other Reaction(s): Rash/Dermatitis Medications cholecalciferol (VITAMIN D-3) 125 mcg (5,000 unit) capsule Take 1 capsule (5,000 Units total) by mouth 1 (one) time each day. Active fluticasone propionate (FLONASE) 50 mcg/actuation nasal spray 1-2 sprays in each nostril BID 1 Active ibuprofen (ADVIL,MOTRIN) 800 mg tablet Take 1 tablet (800 mg total) by mouth every 8 (eight) hours if needed. 2 Active levonorgestreL (MIRENA) 21 mcg/24hr (up to 8 yrs) 52 mg IUD 1 Each by Intrauterine route once. Active modafiniL (PROVIGIL) 200 mg tablet TAKE 1 TABLET BY MOUTH 2 TIMES DAILY. TAKE ONE TAB IN AM AND ONE TAB AT NOON. 2 Active pitolisant (Wakix) 17.8 mg tablet Take 1 tablet by mouth 1 (one) time each day. 2 Active triamcinolone (KENALOG) 0.025 % cream Apply to skin twice a day. 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 Note: Also has narcolepsy and believe managed by neuro for both. Allergic conjunctivitis of both eyes 01/06/2020 Dry eye 01/06/2020 Narcolepsy 08/03/2019 Depression 10/03/2018 Vitamin D deficiency 02/23/2018 HSIL (high grade squamous in traepithelial lesion) on Pap smear of cervix 02/28/2017 Overview (07/29/2024): 03/14/2017 Colpo biopsies negative for dysplasia. Patient elects for observation with COTESTING at 12 months and 24 months since she had an adequate colposcopy and ECC was negative. 05/09/2018 PAP w/ HPV collected Tobacco use disorder 09/23/2005 Overview (07/29/2024): 5 cigs/day-slowly decreasing Immunizations Name Administration Dates Next Due DTaP (Infanrix) 6wks to less than 7yo ,12/31/1988,07/02/1987,04/28,02/26/1987 Hepatitis A Adult (Havrix; V aqta) 19yo and older 10/31/1998,07/04/1998,05/16/1998 Influenza trivalent, with pr eservative (Fluzone; Afluria) 6mo and older 05/29/2020,05/15/2019,11/08/2014,05/18,05/14/2007 Influenza, Unspecified 05/07/2019 MMR, measles mumps and rubel la Live (Priorix; M-M-R II) 12mo and older 05/07/1997,04/21/1988 OPV 09/12/1991, 9,04/28/1987,02/26 Pfizer SARS-CoV-2 COVID-19, mRNA, LNP-S, preservative free 06/02/2021 Pneumococcal polysaccharide 23 valent (Pneumovax 23) 2yo and older 05/29/2020 Td Tetanus diptheria (Tdvax) 7yo and older 05/07/1994 Tdap Tetanus diptheria acell ular pertussis (Boostrix; Adacel) 7yo and older 11/08/2014 Surgical History Surgery Date Site/Laterality Comments LUMBAR LAMINECTOMY 08/10/2018 PROCEDURE: HISTORICAL LUMB LAMINECTOMY OTHER SURGICAL HISTORY PROCEDURE: CLASS Medical History Medical History Date Comments Tobacco use disorder 09/23/2005 DX:Tobacco use disorder Reactive airway disease 08/31/2012 DX:React monse airway disease Anxiety DX:Anxiety Rotator cuff rupture DX:Rotator cuff rupture; COMMENT: right shoulder- cortisone shots Depression 10/03/2018 DX:Depression Covid-19 DX:COVID-19 Narcolepsy DX:Narcolepsy Family History Medical History Relation Name Comments Other: ca renal Maternal Grandfather Lung cancer Maternal Grandmother Lung cancer Mother Lung cancer Paternal Grandfather Other: Other Paternal Grandfather chrons Lung cancer Uncle x2, maternal Breast cancer Neg Hx Colon cancer Neg Hx Ovarian cancer Neg Hx Relation Name Status Comments Daughter Alive Father Alive Maternal Grandfather Maternal Grandmother Mother Paternal Grandfather Sister Alive Uncle Social History Tobacco Use Types Packs/Day Years Used Date Smoking Tobacco: Every Day Cigarettes Smokeless Tobacco: Never Alcohol Use Standard Drinks/Week Comments No 0 (1 standard drink = 0.6 oz pur e alcohol) Comments Unknown Sex and Gender Information Value Date Recorded Sex Assigned at Not on file Legal Sex Female 7:09 AM EST Gender Identity Not on file Sexual Orientation Not on file Obstetrics History Last Filed Vital Signs Vital Sign Reading Time Taken Comments Blood Pressure 116/70 03/09/2022 4:12 PM EDT Pulse 82 03/09/2022 4:12 PM EDT Temperature - - Respiratory Rate - - Oxygen Saturation - - Inhaled Oxygen Concentration - - Weight 93.9 kg (207 lb) 03/09/2022 4:12 PM EDT Height 162.6 cm (5' 4 ) 03/09/2022 4:12 PM EDT Body Mass Index 35.53 03/09/2022 4:12 PM EDT Plan of Treatment Health Maintenance Due Date Last Done Comments Hepatitis A Vaccines (2 of 2 - 2-dose series) 05/02/1999 10/31/1998, 07/04/1998, 05/16/1998 Hepatitis B Vaccines (1 of 3 - 19+ 3-dose series) 2005 Pneumococcal Vaccine: Pediatrics (0 to 5 Years) and At-Risk Patients (6 to 64 Years) (2 of 2 - PCV) 05/29/2021 05/29/2020 Depression Screening 07/03/2022 Social Influencers of Health Screening 07/03/2022 COVID-19 Vaccine (4 - 2023- season) 2024 06/02/2021, 11/03/2020, 10/12/2020 Influenza Vaccine (#1) 2024 0, 05/15/2019, 05/07/2019, Additional history exists Cervical Cancer Screening: HPV 08/03/2024 08/03/2019 DTaP,Tdap,and Td Vaccines (7 - Td or Tdap) 11/08/2024 11/08/2014, 05/07/1994, 09/12/1991, Additional history exists IPV Vaccines Completed 09/12/1991, 03/1989, 04/28/1987, Additional history exists MMR Vaccines Completed 05/07/1997, 04/21/1988 HIV Screening Completed 12/30/2016 Hepatitis C Screening Completed 12/30/2016 HIB Vaccines Aged Out No longer eligi ble based on patient's age to complete this topic HPV Vaccines Aged Out No longer eligi ble based on patient's age to complete this topic Meningococcal ACWY Vaccine Aged Out N o longer eligible based on patient's age to complete this topic Meningococcal B Vacine Aged Out No lo nger eligible based on patient's age to complete this topic RSV Immunization Patients Under 20 months Aged Out No longer eligible based on patient's age to complete this topic Varicella Vaccines Aged Out No longer eligible based on patient's age to complete this topic Procedures Procedure Name Priority Date/Time Associated Diagnosis Comments HPV Routine 08/03/2019 HEPATITIS C SCREENING Routine 12/30/2016 HIV SCREENING Routine 12/30/2016 from Last 3 Months or Most Recently Relevant to Health Maintenance Results * Cervical Cancer Screening: HPV (08/03/2019) Cervical Cancer Screening: HPV NEGATIVE, ABSTRACTED Historical Provider HEALTH MAINTENANCE Final Result * HIV Screening (12/30/2016) HIV Screening ABSTRACTED Historical Provider HEALTH MAINTENANCE Final Result * Hepatitis C Screening (12/30/2016) Hepatitis C Screening ABSTRACTED [facility] Provider HEALTH MAINTENANCE Final Result from Last 3 Months or Most Recently Relevant to Health Maintenance Care Teams Parking Lot Attendant Relationship Specialty Start Date End Date Codey Gallo MD [address] [place] [address] PCP - General Internal Medicine 11/18/21
== END 2024-09-26 10:28 | disposition home or self-care (01) ==
LOC: HO.HMCFM 09:25
PROVIDERS: PCP Nurse Practitioner Family; Visit Provider Nurse Practitioner Family
DX: G47.411 Narcolepsy with cataplexy (principal); G47.33 Obstructive sleep apnea (adult) (pediatric); Z72.0 Tobacco use; E66.01 Morbid (severe) obesity due to excess calories; Z68.37 Body mass index [BMI] 37.0-37.9, adult

== ENCOUNTER → 2024-09-26 09:25 | Outpatient (BNVA) | payer OTHER, SELFPAY | PROVIDERS: PCP Nurse Practitioner Family; Visit Provider Nurse Practitioner Family | DX: G47.411 Narcolepsy with cataplexy (principal); G47.33 Obstructive sleep apnea (adult) (pediatric); E66.01 Morbid (severe) obesity due to excess calories; Z68.37 Body mass index [BMI] 37.0-37.9, adult; Z71.3 Dietary counseling and surveillance; Z72.0 Tobacco use | CPT/HCPCS: 99212 ==

== ENCOUNTER 2025-07-12 12:35 | Outpatient (REF) | payer OTHER, MEDICAID, SELFPAY ==
[2025-07-12 16:04] LABS: Hematocrit 42.8 % (37.0-47.0); Hemoglobin 13.9 g/dl (12.0-16.0); Mean Corpuscular HGB Conc 32.5 g/dl (31.0-35.0); Mean Corpuscular Hemoglobin 31.1 pg (27.0-33.0); Mean Corpuscular Volume 95.7 fL (80.0-98.0); NRBC Abs Auto 0.000 X10*3/uL (0.0-0.012); NRBC Pct Auto 0.0 /100WBC (0.0-0.2); Platelet Count 293 X10*3/uL (160-400); Red Blood Count 4.47 X10*6/uL (4.20-5.50); White Blood Count 9.5 X10*3/uL (4.8-10.8)
[2025-07-12 16:41] LABS: Anion Gap 12 (12-20)
[2025-07-12 16:46] LABS: Alanine Aminotransferase 38 U/L (0-31); Albumin Level 4.5 g/dL (3.5-5.0); Alkaline Phosphatase 42 U/L (39-117); Aspartate Amino Transferase 28 U/L (5-31); Blood Urea Nitrogen 8 mg/dL (9-16); Calcium 9.8 mg/dL (8.4-10.2); Carbon Dioxide 28 mmol/L (22-29); Chloride 105 mmol/L (96-108); Cholesterol 230 mg/dL (<200); Estimated Glomerular Filt Rate > 60; HDL Cholesterol 39 mg/dL (>40); Potassium 4.2 mmol/L (3.3-5.1); Sodium 141 mmol/L (135-145); Total Protein 7.0 g/dL (6.5-8.0); Triglycerides 120 mg/dL (<150)
[2025-07-12 16:51] LABS: Folate 5.5 ng/mL (> or = 4.0); Vitamin B12 516 pg/mL (200-900)
[2025-07-12 17:55] LABS: Microalbum/Creatinine Ratio Ur 33.2 ug/mg cr (<30)
== END 2025-07-12 12:36 | disposition home or self-care (01) ==
LOC: HO.WFDLDS 12:35
PROVIDERS: PCP Nurse Practitioner Family; Visit Provider Nurse Practitioner Family
DX: E78.5 Hyperlipidemia, unspecified (principal); E55.9 Vitamin D deficiency, unspecified; Z13.31 Encounter for screening for depression; Z13.39 Encounter for screening examination for other mental health and behavioral disorders; Z13.1 Encounter for screening for diabetes mellitus
CPT/HCPCS: 36415; 80053; 80061; 82043; 82306; 82570; 82607; 82746; 83036; 84443; 85027; 96127

== ENCOUNTER 2025-07-12 12:35 | Outpatient (AMB) | payer OTHER, MEDICAID, SELFPAY ==
--- OUTSIDE RECORDS SUMMARY | 2025-07-09 10:00 | XMS_ITS | Encounter Summary ---
Author Organization [employer] Address [address] [place] [address] [address] [place] [address] Care Team Providers Care Process Manufacturing Engineer Name Role Phone Unavailable Primary Care Provider Unavailabl e Reason for Visit * Reason Comments Dental Exam Encounter Details Date Type Department Care Team ([facility] st Contact Info) Description 07/09/2025 10:00 AM EST Office Visit [facility] [address] [place] [address] Ciro Doss DDS [address] [place] [address] Periodontal disease (Primary Dx) Social History Tobacco Use Types Packs/Day Years Used Date Smoking Tobacco: Every Day Cigarettes Smokeless Tobacco: Never Comments Unknown Sex and Gender Information Value Date Recorded Sex Assigned at Female 05/24/2022 10:26 AM EDT Legal Sex Female 10:26 AM EDT Gender Identity Female 05/24/2022 10:26 AM EDT Sexual Orientation Official Use Only; I nformation not collected 12/19/2024 11:53 AM EDT Sexual Orientation Straight 12/19/2024 11 :53 AM EDT documented as of this encounter Last Filed Vital Signs Vital Sign Reading Time Taken Comments Blood Pressure 120/82 07/09/2025 10:06 AM EST Pulse - - Temperature - - Respiratory Rate - - Oxygen Saturation - - Inhaled Oxygen Concentration - - Weight - - Height - - Body Mass Index - - documented in this encounter Progress Notes * Ciro Doss DDS - 07/09/2025 10:00 AM EST Dental procedures in this visit [id number] - LIMITED ORAL EVALUATION - PROBLEM FOCUSED (Completed) Service provider: Ciro Doss DDS Billing provider: Ciro Doss DDS [id number] - CASE PRESENTATION, DETAILED AND EXTENSIVE TREATMENT PLANNING (Completed) Service provider: Ciro Doss DDS Billing provider: Ciro Doss DDS Patient ID: Maria Teresa Nieto is a 39 y.o. female. Time Out: No data recorded Location: [facility] Tooth: Maxilla, #7, and #8 Procedure: Emergency Verified the above with patient, catering assistant, and provider. Confirmed via patient's chart, intraorally and by radiographs. Mold Clamper: not applicable Chief Complaint Patient presents with Dental Exam Medical Hx: Vitals: Blood pressure 120/82. Medical History[1] Medications: Encounter Medications[2] Subjective: Pain: mild Duration: >5 days Objective: Tooth: #7 and #8 Radiographs Taken: No Used existing Radiographic Findings: Decay and Periapical Radiolucency Clinical Findings: Multiple teeth missing an carious, previously planned for extractions. Swelling: Tenderness and Intraoral swelling Endo Testing: No Perio: Erythematous and edematous gingival regions Other Findings: Pt needing more time to coordinate extractions, will call when ready for them Diagnosis: Periodontal abscess Assessment/Plan: EOE Schedule extractions Prescriptions: Sent to [facility] on file Pt tolerated procedure well, all questions answered. Dismissed in good condition. NV: Exo(s) Director Of Student Aid: Olive Solis Dentist: Ciro Doss DDS [1] Past Medical History: Diagnosis Date High cholesterol Narcolepsy [2] Outpatient Encounter Medications as of 07/09/2025 Medication Sig Dispense Refill atorvastatin (Lipitor) 40 MG tablet TAKE 1 TABLET ORALLY AT BEDTIME Levonorgestrel (Mirena, 52 MG,) 20 MCG/DAY intrauterine device 52 mg. modafinil (Provigil) 200 MG tablet TAKE ONE TABLET BY MOUTH EVERY MORNING AND AT NOON (TWICE A DAY) Wakix 17.8 MG tablet Take 17.8 mg by mouth. Xywav 500 MG/ML solution No facility-administered encounter medications on file as of 07/09/2025. documented in this encounter Plan of Treatment Upcoming Encounters Date Type Department Care Team (Late st Contact Info) Description 09/05/2025 10:00 AM EST Office Visit [facility] [address] [place] [address] Ciro Doss DDS [address] [place] [address] documented as of this encounter Procedures Procedure Name Priority Date/Time Associated Diagnosis Comments LIMITED ORAL EVALUATION - PROBLEM FOCUSED Routine 07/09/2025 10:00 AM EST CASE PRESENTATION, DETAILED AND EXTENSIVE TREATMENT PLANNING Routine 07/09/2025 10:00 AM EST documented in this encounter Visit Diagnoses Diagnosis Periodontal disease- Primary Unspecified gingival and periodontal disease documented in this encounter
--- NOTE | 2025-07-12 12:38 | A.OFFPC_ITS ---
Vital Signs 07/12/25 12:40 Height 5 ft 3 in Weight 200 lb 8 oz BMI 35.5 BP 102/66 Blood Pressure Location Lt brachial Position Sitting Respiration 12 Pulse 65 Pulse Source Pulse Oximeter Temp 97.2 F Temp Source Oral Pulse Oximetry (%) 99 Oxygen Delivery Method Room Air Intake Visit Reasons: cpe Intake Note: CPE Temporary Staff Accountant Required: No Allergies Sulfa (Sulfonamide Antibiotics) Allergy (Unknown, Verified 07/12/25 13:05) HIVES Medication List - Last Reconciled 07/12/25 by Shana Hightower, BATTERY BUILDER- atorvastatin 40 mg PO BEDTIME cholecalciferol (vitamin D3) 125 mcg PO DAILY cyanocobalamin (vitamin B-12) 1,000 mcg PO DAILY fluticasone propionate 50 mcg/actuation (Flonase Allergy Relief) 1 spray intranasal Q12H 30 days ibuprofen 800 mg PO Q8H PRN levonorgestrel (Mirena) intrauterine modafinil 1 tabs qam and 1 tab at noon PO 2 times a day; pitolisant (Wakix) 17.8 mg PO DAILY polyethylene glycol 3350 (Miralax) 17 grams PO DAILY 14 days sodium,calcium,mag,pot oxybate 0.5 gram/mL (Xywav) 4.5 grams (9 mL) PO BID 30 days Tobacco use date assessed: 07/12/25 Dental Screening Dental Screen Date: 07/12/25 Did you have a dental visit in the last 12 months?: Yes Did you have a dental problem in the last 6 months where you did not have access to dental care?: No Was dental information given to patient?: Patient has dentist HPI HPI Comments History of Present Illness Details 39 y/o F with obstructive sleep apnea, n arcolepsy and cataplexy, major depressive disorder, vitamin-D deficiency, current tobacco user, allergic conjunctivitis, obesity Status post salpingectomy, , foot surgery, lumbar laminectomy with microdiscectomy 08/10/2018 Dr Esposito Family history: Mother from lung cancer, paternal grandfather with lung cancer and Crohn's, maternal grandmother with lung cancer, maternal uncle with lung cancer, maternal grandfather with renal cancer Health maintenance High-grade squamous antra epithelial lesion 2016; Pap 08/09/2019 negative cotest Tdap 11/08/2014 Flu 04/2025 Specialists Sleep medicine Neurology Dermatology History of Present Illness The patient is a 39 year old female presenting for a complete physical exam. Obesity: - The patient has a history of obesity w ith a BMI of 35.5. - She has been going to the gym three ti mes a week for the past nine months and has lost 20 pounds. - She acknowledges that her weight loss is slow, which she attributes to her medications known to cause weight gain and narcolepsy, which she believes slows her metabolism. Tobacco Use: - The patient is a former cigarette smok er, having quit approximately three months ago. - She currently uses a nicotine vaping p roduct, although she reports using it less frequently than she smoked cigarettes. - Her goal is to eventually cease all ni cotine use. Narcolepsy with Cataplexy: - The patient has a history of narcoleps y, cataplexy, and hyperluxia. - Her current medications for this condi tion include Wakix, modafinil, and Xyrem. Obstructive Sleep Apnea: - The patient has a history of obstructi ve sleep apnea and uses a CPAP machine. Depression: - The patient experienced a situational depressive episode following a breakup about nine months ago. - The symptoms have since resolved, and she feels much better. - During that time, she utilized the [facility] Assistance Program (EAP) for counseling, which she found helpful. - She reports recent stress-related hair loss, which has started to regrow. Abnormal Uterine Bleeding: - The patient had a history of abnormal bleeding, for which a referral to [facility] was placed in October. - The bleeding has since stopped. - She believes she may have missed a fol low-up call or appointment notification from the [facility] office. Recurrent Urinary Tract Infections: - The patient had a history of recurrent UTIs, which she believes were related to dehydration. - The symptoms have resolved since she i ncreased her water intake, and she no longer feels a urology referral is necessary. Dry Eye Syndrome: - The patient had a complaint of dry eye s, and a referral to an eye doctor was placed in October, but she never received a call for an appointment. Hyperlipidemia: - Atorvastatin is listed as a medication , but the patient reports she is not currently taking it. - She is aware she needs lab work to mariely ck her cholesterol levels. Past Medical History - Obesity with BMI of 35.5 - Obstructive sleep apnea, on CPAP - Narcolepsy with cataplexy and hyperlux ia - Recent situational depression, resolve d - History of abnormal uterine bleeding - History of recurrent urinary tract inf ections, resolved - History of gastrointestinal issues (pa in, constipation, bleeding), suggestive of colitis or IBS, which has resolved - Hyperlipidemia, non-adherent with ator vastatin - Allergy to sulfa drugs - COVID-19 infection (recent) Past Surgical History - The patient denies any surgeries in e last year. Family History - No changes in family medical history w ere reported in the last year. Social History - Living Situation: Lives at home with h er father. - Family: She has two children. - Substance Use: The patient is a former smoker who quit cigarettes approximately 3 months ago and now uses a nicotine vaping product. - Exercise: She goes to the gym three ti mes per week. - Diet: She is making an effort to monit or her food intake and increase her water consumption. - Weight Management: She has lost 20 yobany nds over the last 9 months through diet and exercise. Health Maintenance - Vaccinations: The patient has received her flu shot for the year. - Screenings: The patient is due for lab s, including a complete metabolic panel (CMP), hemoglobin A1c, and a cholesterol panel, which will be drawn today. - Depression Screening (PHQ-2/9): The jaci bermeo's responses suggest mild depressive symptoms, including sometimes feeling down and bad about herself. - Anxiety Screening (ANNA-7): A previous ANNA score was negative for anxiety. - Contraception: The patient has a Miren a IUD in place. Review of Systems - Constitutional: Reports a 20-pound nallely ght loss over nine months. Denies mood- related fatigue or low energy. - Eyes: History of dry eyes. - Gastrointestinal: Denies constipation. Reports normal bowel sounds. - Genitourinary: Denies recent urinary t ract infection symptoms. Reports urinary urgency during exam. - Musculoskeletal: Denies pain or tender ness with bilateral straight leg raises. - Integumentary/Hair: Reports stress-rel ated hair loss that is now regrowing. - Psychiatric: Reports a resolved episod e of depression. Sometimes feels down, depressed, or bad about herself. Denies anhedonia, mood-related sleep dis turbances, or thoughts of self-harm. Physical Exam General: Well developed, well nourished, in no acute distress. Appears stated age. BMI of 35.5, significant for obesity. Head: Normocephalic, atraumatic. Eyes: Pupils are equal, round and reactive to light and accommodation. Conjunctivae are clear. Scleras nonicteric bilat. Vision grossly normal. Complained of dry eyes. Ears: TMs clear AU, EACS WNL Nose: Patent, without discharge. Neck: No carotid bruit bilat. Supple, no adenopathy or thyromegaly. Breast: Edu on SBE Lungs: Clear to auscultation bilaterally. No rales, rhonchi or wheeze noted. Good air flow in all al. Heart: Regular rate and rhythm. No murmurs, click, rubs or gallops are noted. Abdomen: Bowel sounds present in all quadrants. The abdomen is soft, nontender, with no masses or organomegaly noted. No hernias are noted. : Deferred. Reviewed EDEN & recommendations for routine SUPERVISOR C[employer]. IUD in place. Pulses: Peripheral pulses are equal and palpable bilaterally. Extremities: No clubbing, cyanosis nor edema is noted. Neurologic: Gait and station normal. Cranial Nerves 2-12 intact. Motor strength grossly symmetrical and intact. No sensory loss. Balance normal. Skin: No rashes, ulcers, or lesions noted. Turgor is good. Skin color is good. Hair and nails are without abnormalities. Noted hair loss due to stress, but regrowth observed. Psych: Normal eye contact, affect and mood appropriate, and normal interactions. Patient is alert and appropriate to context. History of depression, currently resolved. Mild anxiety noted. Results Pending Medical Decision Making The patient is a 39-year-old female here for a complete physical exam. She has multiple chronic conditions, including obesity, obstructive sleep apnea on CPAP, and narcolepsy with cataplexy. She has made positive lifestyle changes, including quitting smoking (though now vaping nicotine) and engaging in regular exercise, which has resulted in a 20-pound weight loss over nine months. Her recent situational depression related to a breakup has resolved, and she appropriately utilized the EAP for support. Although the PHQ screening was mildly positive, she declined a formal counseling referral at this time, preferring self-directed options if needed. We reviewed several outstanding referrals. Referrals for urology and gastroenterology were canceled as her symptoms of recurrent UTIs and GI distress have resolved. New referrals are being placed for [facility] to follow up on a history of abnormal bleeding and for ophthalmology to address dry eyes. Labs including a CMP, HgbA1c, and lipid panel will be obtained today. The patient is currently non-adherent with her atorvastatin but has agreed to restart it if her cholesterol levels are elevated. Overall, the patient is engaged in her health and is motivated to continue making improvements. Plan 1. Annual Physical Examination - Will obtain labs today, including CMP, HgbA1c, and a lipid panel. - Follow-up will occur via the patient p ortal to discuss lab results. - The patient will be scheduled for her next annual physical next year. 2. Obesity - Patient has lost 20 pounds over 9 patience hs with increased exercise and dietary modifications. - Encourage patient to continue her curr ent routine of going to the gym, watching her diet, and increasing water intake. 3. Tobacco Use Disorder - Patient has successfully quit smoking cigarettes and now vapes a nicotine product. - Support patient's goal of eventual com plete cessation from all nicotine products. 4. Hyperlipidemia - A lipid panel will be checked as part of today's lab work. - If cholesterol levels are high, the pa elvie has agreed to restart her atorvastatin prescription. 5. Abnormal Uterine Bleeding - A new referral has been placed to [facility] for evaluation, as a previous follow- up was missed. - The patient was advised that the [facility] o ffice should call her to schedule an appointment. 6. Dry Eye Syndrome - A new referral to [facility] in [place] has been placed as they work with both of her insurances. - The patient has been instructed to sumeet l their office to schedule an appointment. 7. Situational Depression - Patient's depressive episode has resol mirtha; she utilized EAP for support. - Patient declined a formal referral for counseling at this time, expressing interest in self-directed options like the [employer] meka. - Will continue to monitor mood. Advised patient to reach out if anything changes. 8. Narcolepsy - Continue current medications: Wakix, m odafinil, and Xyrem. 9. Obstructive Sleep Apnea - Continue use of CPAP. Patient Instructions - Please proceed to the lab today to hav e your blood drawn for the ordered tests (CMP, A1c, Cholesterol). - I will contact you through the patient portal with your lab results. - If your cholesterol level is high, you have agreed to restart your atorvastatin medication. - A referral has been sent to an [facility] practice. They should contact you to schedule an appointment for follow-up. - A referral has been placed for an eye doctor at [facility], located in the [facility] [place]. Please call their office to schedule your appointment. You can ask for a paper copy of the referral at our front man. - Continue with your current routine of exercise and healthy eating. These changes are having a positive effect. - Please contact me if your mood worsens or if you have any other new concerns. - We have scheduled your next yearly phy sical exam. Consent Patient was informed and verbally consented to the use of an ambient scribe for clinic note documentation during this visit. [facility] Medical History Degenerative disc disease, lumbar Recurrent otitis media Narcolepsy and cataplexy Obstructive sleep apnea Depression Surgical History History of salpingectomy H/O section H/O foot surgery History of back surgery Family History Mother No problems noted. Father High cholesterol Maternal Grandmother Cancer Paternal Grandmother Cardiovascular disease Clotting disorder Maternal Grandfather No problems noted. Other Mental health disorder Substance use disorder Social History Household Members: Children 75 years or older and lives alone: No Alcohol intake: never Patient Tobacco Use Status: Current everyday Tobacco user Tobacco use type: Cigarette Cigarette Packs Per Day: 0.5 Cigarettes Per Day: 10 Years Smoked: 15 e-Cigarette/Vaping Use: Never Used service: No Current occupational status: employed Current occupation: [employer] Current occupational exposures/hazards: No Gender identity: Female Cognitive needs: No Hearing needs: No Vision needs: No Questionnaire PHQ-9 Over the last 2 weeks, how often have you been bothered by any of the following problems? 1. Little interest or pleasure in doing things: not at all 2. Feeling down, depressed, or hopeless: several days 3. Trouble falling or staying asleep, or sleeping too much: not at all 4. Feeling tired or having little energy: not at all 5. Poor appetite or overeating: not at all 6. Feeling bad about yourself - or that you are a failure or have let yourself or your family down: several days 7. Trouble concentrating on things, such as reading the newspaper or watching television: not at all 8. Moving or speaking so slowly that other people could have noticed. Or the opposite - being so fidgety or restless that you have been moving around a lot more than usual: not at all 9. Thoughts that you would be better off or of hurting yourself in some way: not at all Total score: 2 Depression Screening Interpretation: Negative Depression Screening Done: Yes 47134 - PHQ-9 Billing: Yes Source: Developed by Drs. Gopal Ramirez, Tahira Escobar, Markos Bass and colleagues, with an educational criselda from [employer]. Thrive Questionnaire Date Thrive assessed: 07/12/25 I am a: Patient What is your living situation today?: I have a steady place to live Within the past 12 months, did the food you bought not last and you didn't have the money to get more?: Never true Do you have trouble paying for medicines?: No Do you have trouble getting transportation to medical appointments?: No Do you have trouble paying your heating and electricity bill?: No Do you have trouble taking care of your child, family member or friend?: No Do you have trouble with day-to-day activities such as bathing, preparing meals, shopping, managing finances, etc.?: No Are you currently unemployed and looking for a job?: No Are you interested in more education?: No Please select the resources that you would like help with: None Currently or been in a relationship where the following occur: No concerns reported THRIVE Score: 0 AUDIT C Alcohol Use Questionnaire (AUDIT-C) 1. How often do you have a drink containing alcohol?: Never 2. How many drinks containing alcohol do you have on a typical day when you are drinking?: 1 or 2 3. How often do you have six or more drinks on one occasion?: Never Total Score: 0 Score Reviewed/Action Taken: Yes ANNA-7 AMB Questionnaire ANNA-7 Date ANNA - 7 assessed: 07/12/25 Feeling nervous, anxious, or on edge: 0 = Not at all Not being able to stop or control worryin = Not at all Worrying too much about different things: 0 = Not at all Trouble relaxin = Not at all Being so restless that it is hard to sit still: 0 = Not at all Becoming easily annoyed or irritable: 0 = Not at all Feeling afraid as if something awful might happen: 0 = Not at all Total ANNA-7 score (0-4 normal; 5-9 mild; 10-14 moderate; 15-21 severe): 0 Source: Developed by Drs. Gopal Ramirez, Tahira Escobar, Markos Bass and colleagues, with an educational criselda from [employer]. ANNA-7 Assessment Billing ANNA-7 Assessment Tool: ANNA-7 Assessment 08452 Physical exam (Primary Care) Vital Signs: Last Vital Signs Temp 97.2 F 07/12/25 12:40 Pulse 65 07/12/25 12:40 Resp 12 07/12/25 12:40 BP 102/66 07/12/25 12:40 Pulse Ox 99 07/12/25 12:40 Oxygen Delivery Method Room Air 07/12/25 12:40 BMI result Body Mass Index 35.5 Tobacco/Smoking Status: Tobacco use Status Tobacco use date assessed 07/12/25 07/12/25 12:42 Patient Tobacco Use Status Current everyday Tobacco 07/12/25 12:42 Tobacco use type Cigarette 07/12/25 12:42 e-Cigarette/Vaping Use Never Used 07/12/25 12:42 Depression Screening Interpretation: Negative Thrive Assessment: Date of Thrive Assessment Date Thrive assessed 07/12/25 07/12/25 12:42 Currently or been in a relationship where the following occur: No concerns reported Coding Level of Care Code Est Pt Prev Care 18-39y(19298) Add On Preventative Visit Only Diagnoses Encounter for general adult medical examination without abnormal findings Z00.00 Vitamin D deficiency E55.9 Laboratory exam ordered as part of routine general medical examination Z00.00 Mixed hyperlipidemia E78.2 Hyperlipidemia type: mixed hyperlipidemia IUD (intrauterine device) in place Z97.5 Dry eyes H04.123 Tobacco user Z72.0 Narcolepsy and cataplexy G47.411 Obstructive sleep apnea G47.33 Screening for malignant neoplasm of cervix Z12.4 Obesity (BMI 30-39.9) E66.9 Mild episode of recurrent major depressive disorder F33.0 Major depression episode severity: mild Additional Codes ANNA-7 Assessment Billing - ANNA-7 Assessment Tool: ANNA-7 Assessment 28871 ([id number]) PHQ-9 - 69619 - PHQ-9 Billing: Yes ([id number]) Assessment & Plan Assessment & Plan (1) Encounter for general adult medical examination without abnormal findings: Onset Date: ~07/12/25 Code(s): Z00.00 - Encounter for general adult medical examination without abnormal findings Category: Medical (2) Vitamin D deficiency: Comment: Check labs Code(s): E55.9 - Vitamin D deficiency, unspecified Category: Medical (3) Laboratory exam ordered as part of routine general medical examination: Code(s): Z00.00 - Encounter for general adult medical examination without abnormal findings Category: Medical (4) Hyperlipidemia: Comment: 10/2023 start atorvastatin 40mg, repeat labs 6 months (pt stopped) Code(s): E78.5 - Hyperlipidemia, unspecified Category: Medical Qualifiers: Hyperlipidemia type: mixed hyperlipidemia Qualified Code(s): E78.2 - Mixed hyperlipidemia (5) IUD (intrauterine device) in place: Code(s): Z97.5 - Presence of (intrauterine) contraceptive device Category: Medical (6) Dry eyes: Comment: refer to Optho Code(s): H04.123 - Dry eye syndrome of bilateral lacrimal glands Category: Medical (7) Tobacco user: Comment: currently vaping Code(s): Z72.0 - Tobacco use Category: Social Hx (8) Narcolepsy and cataplexy: Code(s): G47.411 - Narcolepsy with cataplexy Category: Medical (9) Obstructive sleep apnea: Code(s): G47.33 - Obstructive sleep apnea (adult) (pediatric) Category: Medical (10) Screening for malignant neoplasm of cervix: Comment: refer to electronics utility worker Code(s): Z12.4 - Encounter for screening for malignant neoplasm of cervix Category: Medical (11) Obesity (BMI 30-39.9): Code(s): E66.9 - Obesity, unspecified Category: Medical (12) MDD (major depressive disorder), recurrent episode: Comment: not currently on meds; several meds have interactions w/ her narcolepsy meds declined counseling; will use meka on phone PRN Code(s): F33.9 - Major depressive disorder, recurrent, unspecified Category: Medical Qualifiers: Major depression episode severity: mild Qualified Code(s): F33.0 - Major depressive disorder, recurrent, mild Plan ,. Orders: Orders Microalbumin, Random (w Creat) Today E55.9 - Vitamin D deficiency, unspecified, E78.5 - Hyperlipidemia, unspecified, Z00.00 - Encounter for general adult medical examination without abnormal findings TSH reflex Free T4 Today E55.9 - Vitamin D deficiency, unspecified, E78.5 - Hyperlipidemia, unspecified, Z00.00 - Encounter for general adult medical examination without abnormal findings Vitamin D 25-OH Total Today E55.9 - Vitamin D deficiency, unspecified, E78.5 - Hyperlipidemia, unspecified, Z00.00 - Encounter for general adult medical examination without abnormal findings Complete Blood Count no Diff Today E55.9 - Vitamin D deficiency, unspecified, E78.5 - Hyperlipidemia, unspecified, Z00.00 - Encounter for general adult medical examination without abnormal findings Comprehensive Met. Panel Today E55.9 - Vitamin D deficiency, unspecified, E78.5 - Hyperlipidemia, unspecified, Z00.00 - Encounter for general adult medical examination without abnormal findings Hemoglobin A1c Today E55.9 - Vitamin D deficiency, unspecified, E78.5 - Hyperlipidemia, unspecified, Z00.00 - Encounter for general adult medical examination without abnormal findings Lipid Panel Today E55.9 - Vitamin D deficiency, unspecified, E78.5 - Hyperlipidemia, unspecified, Z00.00 - Encounter for general adult medical examination without abnormal findings Vitamin B12 and Folate Today E55.9 - Vitamin D deficiency, unspecified, E78.5 - Hyperlipidemia, unspecified, Z00.00 - Encounter for general adult medical examination without abnormal findings Referrals [facility] TE[employer]BER Referral Z12.4 - Encounter for screening for malignant neoplasm of cervix, Z97.5 - Presence of (intrauterine) contraceptive device Ophthalmology Referral H04.123 - Dry eye syndrome of bilateral lacrimal glands Patient Instructions: Health screenings for women You should visit your health care provider from time to time, even if you are healthy. The purpose of these visits is to: Screen for medical issues Assess your risk for future medical problems Encourage a healthy lifestyle Update vaccinations and other preventive care services Help you get to know your provider in case of an illness Information Even if you feel fine, you should still see your provider for regular checkups. These visits can help you avoid problems in the future. For example, the only way to find out if you have high blood pressure is to have it checked regularly. High blood sugar and high cholesterol levels also may not have any symptoms in the early stages. A simple blood test can check for these conditions. There are specific times when you should see your provider or receive specific health screenings. The [place] Preventive Services Task Force publishes a list of recommended screenings. Below are screening guidelines for women ages 18 to 39. BLOOD PRESSURE SCREENING Your blood pressure should be checked at least once every 3 to 5 years if: Your blood pressure is in the normal range (top number less than 120 mm Hg and bottom number less than 80 mm Hg) You don't have risk factors for high blood pressure Ask your provider if you need your blood pressure checked more often if: The top number is 120 to 129 mm Hg or the bottom number is 70 to 79 mm Hg You have diabetes, heart disease, kidney problems, are overweight, or have certain other health conditions You have a first-degree relative with high blood pressure You are Black You had high blood pressure during a If the top number is 130 mm Hg or greater or the bottom number is 80 mm Hg or greater, this is considered stage 1 hypertension. Schedule an appointment with your provider to learn how you can reduce your blood pressure. Watch for blood pressure screenings in your area. Ask your provider if you can stop in to have your blood pressure checked. BREAST CANCER SCREENING Experts do not agree about the benefits of breast self-exams in finding breast cancer or saving lives. Talk to your provider about what is best for you. A screening mammogram is not recommended for most women under age 40. Your provider may discuss and recommend mammograms, MRI scans, or ultrasounds if you have an increased risk for breast cancer, such as: A mother or sister who had breast cancer at a young age (most often starting screening earlier than the age the close relative was diagnosed) You carry a high-risk genetic marker CERVICAL CANCER SCREENING Cervical cancer screening should start at age 21 years unless your provider a dvises otherwise. After the first test: Women ages 21 through 29 should have a Pap test every 3 years. Exoprts do not agree on whether HPV testing is recommended for this age group. Women ages 30 through 65 should be screened with either a Pap test every 3 years or the HPV test every 5 years or both tests every 5 years (called cotesting ). Women who have been treated for precancer (cervical dysplasia) should continue to have Pap tests for 20 years after treatment or until age 65, whichever is longer. If you have had your uterus and cervix removed (total hysterectomy), and you have not been diagnosed with cervical cancer or precancer (high grade cervical neoplasia), you do not need cervical cancer screening. CHOLESTEROL SCREENING Cholesterol screening should begin at: Age 45 for women with no known risk factors for coronary heart disease Age 20 for women with known risk factors for coronary heart disease Repeat cholesterol screening should take place: Every 5 years for women with normal cholesterol levels More often if changes occur in lifestyle (including weight gain and diet) More often if you have diabetes, heart disease, kidney problems, or certain other conditions DIABETES SCREENING You should be screened for diabetes starting at age 35 and then repeated every 3 years if you have no risk factors for diabetes. Screening may need to start earlier and be repeated more often if you have other risk factors for diabetes, such as: You have a first degree relative with diabetes. You are overweight or have obesity. You have high blood pressure, prediabetes, or a history of heart disease. Screening for diabetes should be done if you are planning to become and you are overweight and have other risk factors such as high blood pressure. DENTAL EXAM Go to the dentist once or twice every year for an exam and cleaning. Your dentist will evaluate if you need more frequent visits. EYE EXAM Have an eye exam every 5 to 10 years before age 40. If you have vision problems, have an eye exam every 2 years or more often if recommended by your provider. You should have an eye exam that includes an examination of your retina (back of your eye) at least every year if you have diabetes. IMMUNIZATIONS Commonly needed vaccines include: Flu shot: get one every year. COVID-19 vaccine: ask your provider what is best for you. Tetanus-diphtheria and acellular pertussis (Tdap) vaccine: have one at or after age 19 as one of your tetanus-diphtheria vaccines if you did not receive it as an adolescent. Tetanus-diphtheria: have a booster (or Tdap) every 10 years. Varicella vaccine: receive 2 doses if you never had chickenpox or the varicella vaccine. Hepatitis B vaccine: receive 2, 3, or 4 doses, depending on your exact circumstances. Measles, mumps, and rubella (MMR) vaccine: receive 1 to 2 doses if you are not already immune to MMR. Your provider can tell you if you are immune. Ask your provider about the human papillomavirus (HPV) vaccine if: You have not received the HPV vaccine in the past You have not completed the full vaccine series (you should catch up on this shot) Ask your provider if you should receive other immunizations if you have certain health problems that increase your risk for some diseases such as pneumonia. INFECTIOUS DISEASE SCREENING Women who are sexually active should be screened for chlamydia and gonorrhea up until age 25. Women 25 years and older should be screened for chlamydia and gonorrhea if at high risk. Screening for hepatitis C: All adults ages 18 to 79 should get a one-time test for hepatitis C. people should be screened at every . Screening for human immunodeficiency virus (HIV): All people ages 15 to 65 should get a one-time test for HIV. Depending on your lifestyle and medical history, you may also need to be screened for infections such as syphilis and HIV, as well as other infections. PHYSICAL EXAM All adults should visit their provider from time to time, even if they are heal thy. The purpose of these visits is to: Screen for disease Assess your risk of future medical problems Encourage a healthy lifestyle Update your vaccinations and other preventive care services Maintain a relationship with a provider in case of an illness Your height, weight, and BMI should be checked at every exam. During your exam, your provider may ask you about: Depression and anxiety Diet and exercise Alcohol and tobacco use Safety issues, such as using seat belts, smoke detectors, and intimate partner violence Your medicines and risk for interactions SKIN SELF-EXAM Your provider may check your skin for signs of skin cancer, especially if you're at high risk, such as if you: Have had skin cancer before Have close relatives with skin cancer Have a weakened immune system OTHER SCREENING Talk with your provider about colon cancer screening if you have a strong family history of colon cancer or polyps, or if you have had inflammatory bowel disease or polyps yourself. Routine bone density screening of women under 40 is not recommended.
[2025-07-12 12:40] VITALS: BP 102/66; PULSE 65; RESP 12; TEMP 36.2; O2SAT 99; BMI 35.5
--- OUTSIDE RECORDS SUMMARY | 2025-07-12 14:25 | XMS_ITS | Clinical Summary ---
Author Organization [employer] Address [address] [place] [address] Care Team Providers Care Hamper Maker Machine Name Role Phone Unavailable Primary Care Provider [...] 1 TABLET ORALLY AT BEDTIME 4 Active acetaminophen (Tylenol 8 Hour) 650 MG ER tablet Take 1 tablet (650 mg) by mouth every 8 (eight) hours if needed for mild pain. Do not crush, chew, or split. 30 tablet 5 Active ibuprofen 600 MG tablet Take 1 tablet (600 mg) by mouth 3 times daily. 30 tablet 5 Active amoxicillin (Amoxil) 500 MG capsule Take 1 capsule (500 mg) by mouth every 8 (eight) hours for 7 days. 21 capsule 5 07/16/20 25 Active Active Problems Problem Noted Date Diagnosed Date Periodontal disease 07/09/2025 Class 2 obesity 12/13/2024 COVID-19 07/29/2024 RADHA on CPAP 01/02/2021 Overview (12/13/2024): [facility] Treatment Study 05/25/2021: CPAP 5 or 6 recommended with note possible pressures as high as 9 needed for supine sleep. Note: Also has narcolepsy and believe managed by neuro for both. 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 Patient elects for observation with COTESTING at 12 months and 24 months since she had an adequate colposcopy and ECC was negative. 05/09/2018 PAP w/ HPV collected Tobacco use disorder 09/23/2005 Overview (12/13/2024): 5 cigs/day-slowly decreasing Encounters Date Type Department Care Team Description 07/09/2025 10:00 AM EST Office Visit [facility] [address], [place] [phone] Ciro Doss DDS Periodontal disease (Primary Dx) 07/02/2025 Travel from Last 3 Months Social History Tobacco [...] Orientation Straight 12/19/2024 11 :53 AM EDT Last Filed Vital Signs Vital Sign Reading Time Taken Comments Blood Pressure 120/82 07/09/2025 10:06 AM EST Pulse 66 12/10/2024 9:09 AM EDT Temperature - - Respiratory Rate - - Oxygen Saturation - - Inhaled Oxygen Concentration - - Weight - - Height - - Body Mass Index - - Plan of Treatment Upcoming Encounters Date Type Department Care Team (Late st Contact Info) Description 09/05/2025 10:00 AM EST Office Visit [facility] [address], [place] [phone] EnmaCiro helm, DDS [address], [place] [phone] Health Maintenance Due Date Last Done Comments Depression Screening 1986 HIV Screening 1986 Lipid Panel 1986 SDOH Screening 1986 Disability Screening 1986 Alcohol/Substance Use Screening 1998 Hepatitis A Vaccines (2 of 2 - 2-dose series) 05/02/1999 10/31/1998, 07/04/1998, 05/16/1998 Family Planning (PISQ) 2001 HPV Vaccines (1 - 3-dose series) 2001 Hepatitis C Screening 2004 Hepatitis B Vaccines (1 of 3 - 19+ 3-dose series) 2005 Pap Smear 12/28/2007 Cervical Cancer Screening 2016 HPV/Cotest 2016 Dental Oral Exam 06/08/2019 12/05/2018, 12/13/2013 Pneumococcal Vaccine: Pediatrics (0 to 5 Years) and At-Risk Patients (6 to 49) Years (2 of 2 - PCV) 05/29/2021 05/29/2020 Dental Prophylaxis 09/14/2024 03/13/2024, 1 08/12/2018, 12/05/2018 DTaP/Tdap/Td Vaccines (7 - Td or Tdap) 11/08/2024 11/08/2014, 05/07/1994, 09/12/1991, Additional history exists Dental X-Ray: Bitewings 03/14/2025 03/13/20 24, 02/06/2021, 12/05/2018, Additional history exists COVID-19 Vaccine (2024- season) 2025 06/02/2021, 11/03/2020, 10/12/2020 Tobacco Screening 07/09/2026 07/09/2025 Dental X-Ray: Full Mouth 12/12/2027 025, 04/01/2021, 12/05/2018, Additional history exists Zoster Vaccines (1 of 2) 2036 RSV Patients and Patients Aged 60 years or older (1 - 1-dose 75+ series) 2061 IPV Vaccines Completed 09/12/1991, 0603/1989, 04/28/1987, Additional history exists Influenza Vaccine Completed 05/17/2025, , 05/16/2023, Additional history exists HIB Vaccines Aged Out No longer eligi ble based on patient's age to complete this topic Meningococcal B Vaccine Aged Out No l onger eligible based on patient's age to complete [...] Procedure Name Priority Date/Time Associated Diagnosis Comments CASE PRESENTATION, DETAILED AND EXTENSIVE TREATMENT PLANNING Routine 07/09/2025 10:00 AM EST LIMITED ORAL EVALUATION - PROBLEM FOCUSED Routine 07/09/2025 10:00 AM EST PANORAMIC RADIOGRAPHIC IMAGE Routine 12/10/2024 8:00 AM EDT PROPHYLAXIS - ADULT Routine 03/13/2024 1 1:00 AM EDT BITEWINGS - 4 RADIOGRAPHIC IMAGES Routine 03/13/2024 11:00 AM EDT PERIODIC ORAL EVALUATION - ESTABLISHED PATIENT Routine 12/05/2018 12:00 AM EDT from Last 3 Months or Most Recently Relevant to Health Maintenance Insurance DENTAL - [facility] FULL (MEDICAID) DENTAL-[facility] MEDICAID STAND ADULT
--- OUTSIDE RECORDS SUMMARY | 2025-07-12 14:25 | XMS_ITS | Encounter Summary ---
Author Organization [employer] Address [address] [place] [address] [address] [place] [address] Care Team Providers Care Filler Shredder Name Role Phone Unavailable Primary Care Provider Unavailabl e Encounter Details Date Type Department Care Team (Latest Contact Info) Description 12/05/2018 Abstract [facility] CONVERSIONS Dental, Provider, DDS Social History Tobacco [...] as of this encounter Plan of Treatment Upcoming Encounters Date Type Department Care Team (Late st Contact Info) Description 09/05/2025 10:00 AM EST Office Visit [facility] [address] [place] [address] Ciro Doss DDS [address] [place] [address] documented as of this encounter Visit Diagnoses Not on filedocumented in this encounter
--- OUTSIDE RECORDS SUMMARY | 2025-07-12 14:25 | XMS_ITS | Encounter Summary ---
Author Organization [employer] Address [address] [place] [address] [address] [place] [address] Care Team Providers Care Gas Operator Name Role Phone Unavailable Primary Care Provider Unavailabl e Reason for Visit * Reason Onset Date Comments active request 07/06/2024 Encounter Details Date Type Department Care Team ([facility] st Contact Info) Description 07/06/2024 Telephone [facility] [address] [place] [address] El Anna DMD [address] [place] [address] active request Social History Tobacco Use Types [...] is supposed to get a rct in [facility] and that she would get a [...] wait list however for RCT patient in [facility]. DR documented in this encounter Plan of Treatment Upcoming Encounters Date Type Department Care Team (Late st Contact Info) Description 09/05/2025 10:00 AM EST Office Visit [facility] [address] [place], [place] [phone] Ciro Doss DDS [address] [place], [place] [phone] documented as of this encounter Visit Diagnoses Not on filedocumented in this encounter
--- OUTSIDE RECORDS SUMMARY | 2025-07-12 14:25 | XMS_ITS | Clinical Summary ---
Author Organization [facility] Address [address] [place] [address] Care Team Providers Care Director Traffic And Planning Name Role Phone Codey Gallo MD Primary Care Provider [phone] Allergies Active Allergy Reactions Criticality Noted Date [...] 09/23/2005 Overview (07/29/2024): 5 cigs/day-slowly decreasing Immunizations Immunization Administration Dates Next Due DTaP (Infanrix) 6wks [...] on file Sexual Orientation Not on file Last Filed Vital Signs Vital Sign Reading [...] Health Maintenance Due Date Last Done Comments Drug Screen 1986 Non-Opioid Controlled Substance Agreement 1986 Hepatitis A Vaccines (2 of 2 - 2-dose series) 05/02/1999 10/31/1998, 07/04/1998, 05/16/1998 Hepatitis B Vaccines (1 of 3 - 19+ 3-dose series) 2005 HPV Vaccines (1 - 3-dose SCDM series) 2013 Pneumococcal Vaccine: Pediatrics (0 to 5 Years) and At-Risk Patients (6 to 49 Years) (2 of 2 - PCV) 05/29/2021 05/29/2020 Social Influencers of Health Screening 07/03/2022 Depression Screening 07/25/2024 Cervical Cancer Screening: HPV 08/03/2024 08/03/2019 DTaP,Tdap,and Td Vaccines (7 - Td or Tdap) 11/08/2024 11/08/2014, 05/07/1994, 09/12/1991, Additional history exists COVID-19 Vaccine ( season) 2025 06/02/2021, 11/03/2020, 10/12/2020 Influenza Vaccine (#1) 2025 , 05/15/2019, 05/07/2019, Additional history exists RSV Immunization Adult Patients (1 - 1-dose 75+ series) 2061 IPV Vaccines Completed 09/12/1991, 0 03/1989, 04/28/1987, Additional history exists MMR Vaccines [...] Results * Cervical Cancer Screening: HPV (08/03/2019) Pathologist [facility] Cervical Cancer Screening: HPV NEGATIVE, ABSTRACTED Historical Provider HEALTH MAINTENANCE Final Result * HIV Screening (12/30/2016) Pathologist [facility] HIV Screening ABSTRACTED [facility] Provider HEALTH MAINTENANCE Final Result * Hepatitis C Screening (12/30/2016) Pathologist [facility] Hepatitis C Screening ABSTRACTED Historical Provider HEALTH MAINTENANCE Final Result from Last 3 Months or Most Recently Relevant to Health Maintenance Care Teams Director Traffic And Planning Relationship Specialty Start Date End Date Codey Gallo MD [address] [place] [address] PCP - General Internal Medicine 11/18/21
== END 2025-07-12 13:22 | disposition home or self-care (01) ==
LOC: HO.HMCFM 12:36
PROVIDERS: PCP Nurse Practitioner Family; Visit Provider Nurse Practitioner Family
DX: Z00.00 Encounter for general adult medical examination without abnormal findings (principal); E55.9 Vitamin D deficiency, unspecified; E78.2 Mixed hyperlipidemia; Z97.5 Presence of (intrauterine) contraceptive device; H04.123 Dry eye syndrome of bilateral lacrimal glands; Z72.0 Tobacco use; G47.411 Narcolepsy with cataplexy; G47.33 Obstructive sleep apnea (adult) (pediatric); Z12.4 Encounter for screening for malignant neoplasm of cervix; E66.9 Obesity, unspecified; F33.0 Major depressive disorder, recurrent, mild; Z68.35 Body mass index [BMI] 35.0-35.9, adult